=== PATIENT | female | born 1975 | race Caucasian/White ===

== ENCOUNTER → 2020-04-15 07:53 | Outpatient (CLI) | payer BC, SELFPAY ==
--- NOTE | 2020-04-15 08:01 | MM_ITS ---
PROCEDURE: MM DIG SCREENING MAMM BI W/CAD DIGITAL BREAST TOMOSYNTHESIS INCLUDED Patient Age:44Y CLINICAL INDICATION: SCREENING. Mirena; no new complaints Family history. Negative COMPARISON: MY Digital Jony Screen BILAT from 10/04/2017 TECHNIQUE: Standard CC and MLO images were obtained. R2 CAD reviewed. Bilateral digital breast tomosynthesis included. Additional axillary CC view both breast FINDINGS: Moderate breast density overall.. Regions of moderate femoral gland is the most notable at retroareolar region and towards upper outer quadrant. The prior films are helpful showing a similar gker-oz-ndxnfetl asymmetry in the distribution of fibroglandular elements but No new dominant or suspicious mass but no suspicious calcifications either breast . Left breast. No new areas of significant concern Areas of mild asymmetry seen on today's study were present on previous exam. And dissipate from one-view to another Right breast: No new areas of concern Stable asymmetric fibroglandular elements Bilateral follow-up 1 year recommended IMPRESSION: Stable bilateral mammogram. No new areas of concern Stable mild to moderate asymmetry fibroglandular elements.. . Bilateral follow-up 1 year recommended and encouraged BI-RAD Category: 2 Benign Finding(s) FOLLOW-UP: 1YR 1 Year Follow-up (A letter has been sent to the patient regarding results of the study.) Dictated by: Cyrus Barnes MD 04/20/2020 15:46 Electronically signed by Cyrus Barnes MD in [place] 04/20/2020 15:46
== END ==
PROVIDERS: PCP Family Medicine; Visit Provider Nurse Practitioner Family
DX: Z12.31 Encounter for screening mammogram for malignant neoplasm of breast (principal)
CPT/HCPCS: 77063; 77067

== ENCOUNTER → 2021-09-30 16:36 | Outpatient (CLI) | payer BC, SELFPAY | PROVIDERS: PCP Family Medicine; Visit Provider Nurse Practitioner | DX: Z20.822 Contact with and (suspected) exposure to COVID-19 (principal) | CPT/HCPCS: C9803; U0003; U0005 ==

== ENCOUNTER → 2022-02-17 13:29 | Outpatient (CLI) | payer BC, SELFPAY ==
--- NOTE | 2022-02-17 13:29 | MM_ITS ---
PROCEDURE INFORMATION: Exam: MG Bilateral Screening 3D Mammography Exam date and time: 02/17/2022 1:25 PM Age: 46 years old Clinical indication: Screening examination TECHNIQUE: Imaging protocol: Bilateral Screening tomosynthesis and 2D mammography including computer-aided detection (CAD) when performed. COMPARISON: 1. MG MM DIG SCREENING MAMM BI W/CAD 04/15/2020 8:02 AM 2. MG MY Digital Jony Screen BILAT 10/04/2017 10:53 AM FINDINGS: MAMMOGRAPHY: Breast composition: There are scattered areas of fibroglandular density. Mass: None. Architectural distortion: None. Calcifications: No suspicious calcifications. Asymmetric density: None. Skin thickening: None. Axillary adenopathy: None. IMPRESSION: No mammographic evidence of malignancy. Annual screening is recommended unless otherwise clinically indicated. ASSESSMENT: BI-RADS Category 1: Negative
== END ==
PROVIDERS: PCP Family Medicine; Visit Provider Obstetrics & Gynecology
DX: Z12.31 Encounter for screening mammogram for malignant neoplasm of breast (principal)
CPT/HCPCS: 77063; 77067

== ENCOUNTER → 2023-05-23 14:47 | Outpatient (POV) | payer BC, SELFPAY | PROVIDERS: Visit Provider Dermatology | DX: Z00.00 Encounter for general adult medical examination without abnormal findings (principal) ==

== ENCOUNTER 2024-01-23 14:44 | Outpatient (CLI) | payer BC, SELFPAY | END 2024-01-23 23:59 | disposition home or self-care (01) | LOC: LAB.DROPOF 14:45 | PROVIDERS: PCP Internal Medicine Adolescent Medicine; Visit Provider Physician Assistant | DX: L02.91 Cutaneous abscess, unspecified (principal); B95.7 Other staphylococcus as the cause of diseases classified elsewhere | CPT/HCPCS: 87070; 87077; 87186; 87205 ==

== ENCOUNTER 2024-08-21 10:03 | Outpatient (CLI) | payer BC, SELFPAY ==
--- NOTE | 2024-08-21 10:07 | XR_ITS ---
FINAL REPORT CLINICAL HISTORY: NECK PAIN COMPARISON: None FINDINGS: CERVICAL SPINE: AP, lateral and odontoid views of the cervical spine were obtained. There is no prior exam for comparison. There is no acute fracture or malalignment. Vertebral body height is preserved. There is straightening of the normal curvature of the cervical spine with mild kyphosis at the C5 level. The precervical soft tissues are normal. IMPRESSION: Straightening of the normal curvature of the cervical spine with mild kyphosis at the C5 level. No acute bony abnormality identified. Reviewed, Interpreted and Dictated by Jose More III, MD Transcribed by Emilia Trent Authenticated and . [facility]
== END 2024-08-21 23:59 | disposition home or self-care (01) ==
LOC: RAD 10:04
PROVIDERS: PCP Physician Assistant; Visit Provider Physician Assistant
DX: M54.2 Cervicalgia (principal)
CPT/HCPCS: 72040

== ENCOUNTER 2024-08-28 16:13 | Outpatient (CLI) | payer BC, SELFPAY ==
--- NOTE | 2024-08-28 16:16 | MM_ITS ---
PROCEDURE INFORMATION: Exam: MG Bilateral Screening 3D Mammography Exam date and time: 08/28/2024 4:00 PM Age: 48 years old Clinical indication: Screening examination TECHNIQUE: Imaging protocol: Bilateral Screening tomosynthesis and 2D mammography including computer-aided detection (CAD) when performed. COMPARISON: 1. MG MM DIG SCREENING MAMM BI W/CAD 02/17/2022 1:25 PM 2. MG MM DIG SCREENING MAMM BI W/CAD 04/15/2020 8:02 AM FINDINGS: MAMMOGRAPHY: Breast composition: There are scattered areas of fibroglandular density. Mass: None. Architectural distortion: None. Calcifications: No suspicious calcifications. Asymmetric density: None. Skin thickening: None. Axillary adenopathy: None. IMPRESSION: No mammographic evidence of malignancy. Annual screening is recommended unless otherwise clinically indicated. ASSESSMENT: BI-RADS Category 1: Negative.
== END 2024-08-28 23:59 | disposition home or self-care (01) ==
LOC: RAD 16:14
PROVIDERS: PCP Physician Assistant; Visit Provider Physician Assistant
DX: Z12.31 Encounter for screening mammogram for malignant neoplasm of breast (principal)
CPT/HCPCS: 77063; 77067

== ENCOUNTER 2025-02-17 06:22 | Day surgery (SDC) | payer BC, SELFPAY ==
[2025-02-17 07:17] VITALS: BMI 28.8
[2025-02-17 07:22] VITALS: BP 135/93; PULSE 82; RESP 18; TEMP 36.1; O2SAT 96
--- NOTE | 2025-02-17 07:30 | P.PNANES_ITS ---
[facility] Disclaimer: The information contained in this section may have been updated after the patient was seen, as this information can be updated by other users. Medical History (Updated 02/17/25 @ 07:20 by Houston Green RN) No significant past medical history Surgical History History of tonsillectomy History of Family History Father Diabetes Grandfather Cancer Social History Smoking Status: Never smoker alcohol intake: current alcohol intake frequency: a few times a week substance use type: denies use current occupational status: employed Travel in the last 8 weeks?: None household members: family housing: house Have you lived/traveled outside US in past 30 days?: No Contact w/someone who lives/traveled outside US past 30 days?: No Exposure to someone with infectious disease in past 14 days?: No Do you have a fever (greater than 100.4 F or 38 C)?: No Have you tested positive for COVID-19?: No Exposed to someone with COVID-19 in past 14 days?: No Do you have a sore throat?: No Do you have a cough?: No Do you have any weakness?: No Do you have any diarrhea?: No Are you experiencing any unusual bleeding?: No Do you have any muscle aches/pain?: No Do you have any abdominal pain?: No Are you experiencing loss of taste or smell?: No [facility] Anesthesia Checklist Patient Identification Patient Identification: Arm Band Structural Data Admitted From: Home Planned Operative Procedure/s: Colonoscopy Consent for Planned Operative Procedure(s) Verified: Yes Verified Documents: Surgical Consent and History and Physical NPO Status Verified Time NPO: 05:15 (finished prep) Additional verifications Anesthesia Reactions: No Airway Assessment Mallampati Score:: Class II C-Spine Mobility Assessed: Yes TMJ Mobility Assessed: Yes Dentition: Good Dentition Neurological Assessment Level of Consciousness: Awake, Alert and Appropriate Anesthesia Plan Anesthesia Risk discussed: Yes Anesthesia Plan: Verified ASA Class: II Anesthesia Type: MAC
--- NOTE | 2025-02-17 07:48 | P.HP_ITS ---
History of Present Illness *Admission Date: 02/17/25 *Reason for visit:: Screening colonoscopy *History of present illness: Mrs. Dixon is a 49-year-old female who is here for initial screening colonoscopy. The examination is deemed medically necessary for screening colonoscopy. The patient has been seen, interviewed and examined prior to the procedure by both myself and the anesthesia provider. [facility] Disclaimer: The information contained in this section may have been updated after the patient was seen, as this information can be updated by other users. Medical History (Updated 02/17/25 @ 07:49 by Edmundo Mulligan II, MD) No significant past medical history Surgical History History of tonsillectomy History of Family History Father Diabetes Grandfather Cancer Social History Smoking Status: Never smoker alcohol intake: current alcohol intake frequency: a few times a week substance use type: denies use current occupational status: employed Travel in the last 8 weeks?: None household members: family housing: house Have you lived/traveled outside US in past 30 days?: No Contact w/someone who lives/traveled outside US past 30 days?: No Exposure to someone with infectious disease in past 14 days?: No Do you have a fever (greater than 100.4 F or 38 C)?: No Have you tested positive for COVID-19?: No Exposed to someone with COVID-19 in past 14 days?: No Do you have a sore throat?: No Do you have a cough?: No Do you have any weakness?: No Do you have any diarrhea?: No Are you experiencing any unusual bleeding?: No Do you have any muscle aches/pain?: No Do you have any abdominal pain?: No Are you experiencing loss of taste or smell?: No Other Medical History Have you received the Pneumonia Vaccine: No Review of Systems Review of Systems Review of systems (narrative): Negative *Cardiovascular Comments: Negative *Gastrointestinal Comments: Negative *Genitourinary Comments: Negative *Musculoskeletal Comments: Negative *Neurologic Comments: Negative Meds Home Medications and Allergies Home Medications ?Medication ?Instructions ?Recorded ?Confirmed ?Type levonorgestrel (Mirena) 21 mcg intrauterine DAILY 02/14/25 History rosuvastatin 10 mg tablet 10 mg PO DAILY 02/14/2511/12 History losartan 25 mg tablet 25 mg PO DAILY 02/17/2511/12 History New Prescriptions to Start Prescriptions: Allergies Allergy/AdvReac Type Severity Reaction Status Date / Time From [facility] Allergy Intermediate Rash Uncoded 02/14/25 11:01 Exam Data for Last 24 hours Vital signs and Labs for Last 24 Hours: Temp Pulse Resp BP Pulse Ox O2 Del Method 97.0 F L 82 18 135/93 H 96 Room Air 02/17/25 07:22 02/17/25 07:22 02/17/25 07:22 02/17/25 07:22 02/17/25 07:22 02/17/25 07:22 I & O for Last 24 hours: Intake & Output 02/14/25 02/15/25 02/16/25 02/17/25 23:59 23:59 23:59 23:59 Weight 163 lb *Routine HEENT Exam Head: Present normocephalic Eye: Present EOMI and PERRL ENT: Present mucous membranes moist *Routine Neck Exam Neck: Present supple *Routine Respiratory Exam Respiratory: Present CTA bilaterally *Routine Cardiovascular Exam Cardiovascular: Present RRR *Routine Abdominal Exam Abdominal: Present soft and normoactive bowel sounds; Absent tenderness *Routine Rectal Exam Rectal:: deferred *Routine Genitalia Exam Genitalia:: deferred *Routine Extremities Exam Extremities: Absent cyanosis, clubbing or edema *Routine Skin Exam Skin: Present warm; Absent rash *Routine Neurological Exam Neurological: Present alert and oriented X3 Assessment and Plan *Assessment and plan (1) Encounter for screening colonoscopy: Status: Acute Category: Medical Code(s): Z12.11 - Encounter for screening for malignant neoplasm of colon (2) Screening for colon cancer: Status: Acute Category: Medical Code(s): Z12.11 - Encounter for screening for malignant neoplasm of colon Plan A/P: 1. Screening for colon cancer is the preprocedural diagnosis. The patient will be anesthetized/sedated using MAC sedation. The patient has been seen and examined. Cardiac and lung assessment prior to the examination is stable. Proceed with planned screening colonoscopy.
[2025-02-17 07:50] LABS: HCG Qualitative, Serum Negative (Negative)
--- NOTE | 2025-02-17 07:50 | P.PCN_ITS ---
[facility] Procedure Note Date: 02/17/25 Time: 08:03 Procedure Note:: Colonoscopy Procedure Report: Colonoscopy with cold snare polypectomy and cold biopsy Endoscopist: Edmundo Mulligan II, MD Referring physician: Kadi Charles PA-C Date of Procedure: February 17, 2025 Equipment: Olympus 190 variable stiffness pediatric colonoscope Sedation: MAC sedation Indication: Mrs. Dixon is a 49-year-old female who is here for initial screening colonoscopy. She reports no abdominal pain, weight loss, change in her bowel habits or rectal bleeding. She does report that her maternal grandfather had colon cancer around the age of 65. Procedure: Prior to the procedure, a history and physical exam was performed, and patient's medications and allergies were reviewed. The risks, benefits and alternatives of the sedation and procedure were discussed with the patient. All questions were answered and informed consent was obtained. The patient was brought to the procedure room. Patient identification and proposed procedure were verified by the physician and the nurse. The patient was placed in a left lateral decubitus position and the scope was passed under direct vision. Throughout the procedure, the patient's blood pressure, pulse, and oxygen saturations were monitored continuously. The colonoscopy was accomplished without difficulty. The patient tolerated the procedure well. Findings: On digital rectal examination there was normal rectal tone. There were no external hemorrhoids and there were small external hemorrhoidal tags. The colonoscope was introduced through the anal canal to the rectum and advanced to the cecum. The ileocecal valve and appendiceal orifice were identified. The scope was advanced a short distance into the ileum and there was a very small 3 mm nodule that was removed via cold biopsy. The scope was then withdrawn into the colon. There was a single cecal polyp (5 mm) which was removed via cold snare polypectomy. The cecum, ascending, transverse, descending, sigmoid and rectum were grossly normal. There were no mucosal abnormalities identified. Upon retroflexion within the rectum there were grade 2 internal hemorrhoids. The preparation was excellent throughout with [place] Preparation Score of 9. The cecal time was 12 minutes. Impression: 1. Diminutive 5 mm cecal polyp 2. Grade 2 internal hemorrhoids Plan: I will follow-up the polyp histology and recommend repeat surveillance colonoscopy again in 7 years if the polyp is adenomatous. I would encourage psyllium bulking fiber supplementation on a maintenance basis.
[2025-02-17 08:05] VITALS: BP 102/71; PULSE 85; RESP 20; TEMP 36.2; O2SAT 99
[2025-02-17 08:15] VITALS: BP 105/73; PULSE 83; RESP 20; O2SAT 97
[2025-02-17 08:25] VITALS: BP 100/75; PULSE 89; RESP 20; O2SAT 97
[2025-02-17 08:35] VITALS: BP 104/71; PULSE 84; RESP 18; TEMP 36.2; O2SAT 99
== END 2025-02-17 08:55 | disposition home or self-care (01) ==
PROVIDERS: PCP Physician Assistant; Visit Provider Internal Medicine Gastroenterology
PROC: 0DJD8ZZ Inspection of Lower Intestinal Tract, Via Natural or Artificial Opening Endoscopic (ICD-10-PCS; CPT 45378; principal; 2025-02-17 08:00)
DX: Z12.11 Encounter for screening for malignant neoplasm of colon (principal); D12.0 Benign neoplasm of cecum; K64.1 Second degree hemorrhoids; Z80.0 Family history of malignant neoplasm of digestive organs; Z88.8 Allergy status to other drugs, medicaments and biological substances; Z79.899 Other long term (current) drug therapy
CPT/HCPCS: 45380; 45385; 84703

== ENCOUNTER 2025-03-19 15:24 | Outpatient (CLI) | payer BC, SELFPAY ==
--- OUTSIDE RECORDS SUMMARY | 2024-02-16 07:30 | XMS_ITS ---
Author Organization [facility] Address [address] [facility] [address] [place] [id number] Care Team Providers Care Strip Picker Name Role Phone Mavis Monroy Primary Care Provider Lyndsey Rojas Unavailable [phone] Glenn Ceja Unavailable [phone] Allergies Allergen (clinical drug ingredient) Drug/Non Drug [...] 02/16/2024 Encounters Encounter Location Date Provider Diagnosis [facility] [address] [place] [id number] 02/16/2024 Glenn Meredosia Cough, unspecified t ype R05.9 ; Seasonal [...] Appt Details Follow Up: via phone to kathy rt progress, Reason: Provider Name:Kadi masters, 03/19/2025 02:45:00 PM, [address], [place], [place], [id number], Progress Notes * Krystal DIXON:1975 (49 yo F)Acc No.[id number]:02/16/2024 Progress Notes Patient: Madonna VALLADARES Provider: Ace Ceja M.D. :1975 A ge:48 Y S ex:Female Date:02/16/2024 Address:[address], [place], [id number] Pcp:Mavis Monroy Subjective: * Chief Complaints: * [...] . * Hospitalization/Major Diagno stic Procedure: b [facility] ER-DX with BPPV but doesn't have [...] * Procedure Codes: 9 [address] [place], [address] CAPILLARY BLOOD DRAW, 87744 CBC WITH AUTO DIFF * Follow Up: v ia phone to report progress * Images: Billing Information: * Visit Code: 68711 Office Visit, Est Pt., Level 4. * Procedure Codes: [address] [place]. [address] CAPILLARY BLOOD DRAW. 33696 CBC WITH AUTO DIFF. * Electronic signature of Sasha Ceja MD on 03/19/2025 at 03:26 PM EDT Sign off status: Pending * Provider: Ace Ceja M.D. Date: 0 02/16/2024 Generated for Toby smith/Manjula/eTransmitting on: 0 03/19/2025 03:26 PM EDT History and Physical Notes * HPI (History [...]
--- OUTSIDE RECORDS SUMMARY | 2024-08-21 05:30 | XMS_ITS ---
Author Organization Niels Address [address] [facility] [address] [place] [id number] Care Team Providers Care Grinding Machine Tender Name Role Phone Mavis Monroy Primary Care Provider [phone] Lyndsey Rojas Unavailable [phone] Kadi Charles Unavailable [phone] Allergies Allergen (clinical drug ingredient) Drug/Non Drug [...] Interpretation: Performing Lab: Notes/Report: Test performed by [facility] , [address], [place] [address] Demetrius Vences MD, Produce Assistant CLIA: [id number] Sodium 141 135-145 mmol/L Potassium 4.1 3.5-5.3 [...] Interpretation: Performing Lab: Notes/Report: Test performed by [facility] ([facility]), [address] , [address] , [place] [address] Demetrius Vences MD, Produce Assistant CLIA: [id number] Cholesterol 156 <200 mg/dL Triglycerides 68 <150 [...] Interpretation: Performing Lab: Notes/Report: Test performed by [facility] [address] , [address], [place] [address] Demetrius Vences MD, Produce Assistant CLIA: [id number] TSH reflex to FT4 2.91 0.43-5.25 mU/L [...] W/U Status Risk Notes Problem Neck pain (M54.2) Active confirmed Vital Signs Blood pressure systolic 112 mm Hg 08/21/20 24 Blood pressure diastolic 70 mm Hg 024 Heart Rate 94 /min 08/21/2024 Height 63 in 08/21/2024 Weight 163.2 lbs 08/21/2024 BMI 28.91 kg/m2 08/21/2024 Encounters Encounter Location Date Provider Diagnosis Daniel [address] [facility] [address] [facility] [address] [place] [id number] 08/21/2024 Kadi Charles Essential hypertensi on I10 [...] phone to repo rt test results, Reason: Provider Name:Kadi Spivey y, 03/19/2025 02:45:00 PM, [address] [facility], [address], [place], [id number], Progress Notes * Krystal SU:1975 (49 yo F)Acc No.[id number]:08/21/2024 Progress Notes Patient: Matthias VALLADARESa Provider: JENNIFER Haines :1975 A ge:48 Y S ex:Female Date:08/21/2024 Address:[facility] [place], [place], [id number] Pcp:Mavis Monroy Subjective: * Chief Complaints: * [...] . * Hospitalization/Major Diagno stic Procedure: b [facility] ER-DX with BPPV but doesn't have [...] * Vitals: W t:163.2, Temp:97.6, BP:112/70, HR:94, Nurse:ETHAN, Ht: 63, BMI:28.91. * Examination: G eneral [...] Lr 08/21/2024 11:06:09 AM > faxed to [facility] Florence Casarez 08/22/2024 9:21:21 AM > 08/28/24 @4:30CrKadi barajas 09/19/2024 1:19:40 PM > see TE 5.?Colon cancer screening?Imaging: colonoscopy* Kadi Charles 08/21/2024 11 :01:38 AM > Needs with Suni Acosta 08/21/2024 11:03:37 AM > faxed to Dr. Mulligan office * Procedure Codes: 8 5025 CBC WITH AUTO DIFF, 06614 VENIPUNCT, ROUTINE* * Follow Up: v ia phone to report test results * Images: Billing Information: * Visit Code: 88193 Office Visit, Est Pt., Level 4. * Procedure Codes: 51677 CBC WITH AUTO DIFF. 11584 VENIPUNCT, ROUTINE*. * Electronic signature of JENNIFER Martinez on 03/19/2025 at 03:26 PM EDT Sign off status: Pending * Provider: JENNIFER Haines Date: 10/22/2023 Generated for Lindai ng/Fasylviag/eTransmitting on: 0 03/19/2025 03:26 PM EDT History [...]
--- OUTSIDE RECORDS SUMMARY | 2025-03-19 15:27 | XMS_ITS | Patient Health Record ---
Author Organization [facility] Address [address] [facility] [address] [place] [id number] Care Team Providers Care Erp Implementation Consultant Name Role Phone Mavis Monroy Primary Care Provider [phone] Lyndsey Rojas Unavailable [phone] Kadi Charles Unavailable [phone] Allergies Allergen (clinical drug ingredient) Drug/Non Drug [...] Interpretation: Performing Lab: Notes/Report: Test performed by [facility], [facility] [address] [place] [address] , [address], [place] [address] Demetrius Vences MD, Dog Day Care Attendant CLIA: [id number] Sodium 141 135-145 mmol/L Potassium 4.1 3.5-5.3 [...] Interpretation: Performing Lab: Notes/Report: Test performed by [facility], [address] , [address], [place] [address] Demetrius Vences MD, Dog Day Care Attendant CLIA: [id number] Cholesterol 156 <200 mg/dL Triglycerides 68 <150 [...] Interpretation: Performing Lab: Notes/Report: Test performed by [facility] [address] [place] [address] , [address], [place] [address] Demetrius Vences MD, Dog Day Care Attendant CLIA: [id number] TSH reflex to FT4 2.91 0.43-5.25 mU/L Mammogram Reviewed date:09/19/2024 01:19:44 PM Interpretation:Negative Performing Lab: Notes/Report: Negative result Negative X ray : Spine, cervical A-P and Lateral Reviewed date:08/23/2024 01:07:31 PM Interpretation: Performing Lab: Notes/Report: Reason For Referral No Information Medications Medication SIG (Take, Route, Frequency, Duration) Notes Start Date End Date Status Rosuvastatin Calcium 10 mg TAKE ONE TABL ET BY MOUTH EVERY DAY; Duration: 90 Active Omeprazole 40 MG 1 capsule 30 minutes before morning meal Orally Two times a day; Duration: 30 day(s) 02/16/2024 Active Loratadine 10 MG 1 tablet Orally Once a day; Duration: 30 day(s) Active tiZANidine HCl 4 MG 1 cap(s) orally ever y night as needed; Duration: 90 days Active Rosuvastatin Calcium 10 MG 1 tab(s) oral ly once a day; Duration: 30 days Active Montelukast Sodium 10 MG 1 tablet Orally Once a day; Duration: 30 days Active Losartan Potassium 25 MG 1 tablet Orally Once a day; Duration: 90 days 02/16/2024 Active Immunizations Vaccine Route Administration Date Status Comme nts COVID 19 Moderna Unknown 11/06/2020 Administered COVID 19 Moderna Unknown 07/28/2021 Administered Fluzone PF Quad (6-35 months) Unknown 10/09/2018 Admini stered Fluzone PF Quad (6-35 months) Unknown 07/15/2019 Admini stered Fluzone PF Quad (6-35 months) Unknown 07/13/2021 Admini stered Fluzone PF Quad (6-35 months) Unknown 07/26/2022 Admini stered Fluzone Quad (6months&older) Unknown 10/09/2018 Adminis tered Hepatitis A (adult) Unknown 10/09/2018 Administered Problems Problem Type SNOMED Code ICD Code Onset Dates Problem Status W/U Status Risk Notes Problem Hypertension (09291468) HTN (hypertension) (I10) Active confirmed Problem Hyperlipidemia (17508875) Hyperlipidemia (E78.5) Active confirmed Problem Essential hypertension (42917020) Essential hypertension (I10) Active confirmed Problem Seasonal allergy (160456996) Seasonal allergies (J30.2) Active confirmed Problem Neck pain (66524259) Neck pain (M54.2) Active confirmed Problem Band neutrophil count above reference range (746994925) Left shift without diagnosis of specific infection (D72.825) Active confirmed Vital Signs Heart Rate 76 /min 03/19/2025 Blood pressure diastolic 76 mm Hg 03/19/2025 Height 63 in 03/19/2025 Blood pressure systolic 124 mm Hg 03/19/2025 Weight 171.6 lbs 03/19/2025 BMI 30.39 kg/m2 03/19/2025 Encounters Encounter Location Date Provider Diagnosis [facility] [address] [facility] [address] [place], [place] [id number] 08/21/2024 Kadi Charles Essential hypertensi on I10 ; Neck pain M54.2 ; Hyperlipidemia E78.5 ; Screening mammogram, encounter for Z12.31 and Colon cancer screening Z12.11 [facility] [address] [place], [place] [id number] 03/19/2025 Kadi Charles Injury of right ankl e, initial encounter S99.911A [facility] [address] [place], [place] [id number] 09/19/2024 Kadi Charles [facility] [address] [place], [place] [id number] 11/20/2024 Mavis Monroy Hyperlipidemia E78.5 [facility] [address] [facility] [address] [facility] [address] [place] [id number] 02/18/2025 Mavis Monroy Hyperlipidemia E78.5 Assessments Encounter Date Diagnosis (ICD Code) Assessment Notes Treatment Notes Treatment Clinical Notes Section Notes 08/21/2024 Essential hypertension (ICD-10 - I10) 11/20/2024 Hyperlipidemia (ICD-10 - E78.5) 02/18/2025 Hyperlipidemia (ICD-10 - E78.5) 03/19/2025 Injury of right ankle, initial encounter (ICD-10 - S99.911A) 08/21/2024 Neck pain (ICD-10 - M54.2) 08/21/2024 Hyperlipidemia (ICD-10 - E78.5) 08/21/2024 Screening mammogram, encounter for (ICD-10 - Z12.31) 08/21/2024 Colon cancer screening (ICD-10 - Z12.11) Plan Of Treatment Pending Test Test Name Order Date X ray : Ankle, right 03/19/2025 X ray : Foot, right 03/19/2025 colonoscopy 08/21/2024 Next Appt Details Provider Name:Kadi Merlos Clovisamara sonam, 03/19/2025 02:45:00 PM, [address] [facility] [address] [facility], [address], [place], [id number], Insurance Providers Payer Name Payer Address Payer Phone Subscriber Number Group Number Insured Name Patient Relationship to Insured Coverage Start Date Coverage End Date [employer] [facility] [address] [place] [address] [id number] Madonna Dixon Self - patient is the insured Medical (General) History Medical History History ICD Code Allergic Rhinitis Surgical History Surgery Date(Month/Year) 2003, 2005 Tonsillectomy Hospitalization History Reason Date(Month/Year) Clinic-Bronchitis, Sinus infection [facility] ER-DX with BPPV but doesn 't have it 07/14/2018
--- NOTE | 2025-03-19 15:28 | XR_ITS ---
PROCEDURE INFORMATION: Exam: XR Right Foot Exam date and time: 03/19/2025 3:30 PM Age: 49 years old Clinical indication: Injury or trauma; Other: Twisted ankle; Sprain or strain; Right; Additional info: Twisted ankle while walking 6 days ago. , Swelling, bruising TECHNIQUE: Imaging protocol: Radiologic exam of the right foot. Views: 3 or more views. COMPARISON: CR XR FOOT RT MIN 3V 03/19/2025 3:30 PM FINDINGS: Bones/joints: Fracture distal aspect of fibula. No dislocation. Soft tissues: Lateral soft tissue swelling. IMPRESSION: Distal fibular fracture.
--- NOTE | 2025-03-19 15:28 | XR_ITS ---
PROCEDURE INFORMATION: Exam: XR Right Ankle Exam date and time: 03/19/2025 3:30 PM Age: 49 years old Clinical indication: Pain; Ankle and foot; Right; Additional info: Injury RT ankle TECHNIQUE: Imaging protocol: Radiologic exam of the right ankle. Views: 3 or more views. COMPARISON: No relevant prior studies available. FINDINGS: Bones/joints: Minimally displaced transverse fracture distal aspect of fibula. No dislocation. Minimal joint effusion. Soft tissues: Lateral soft tissue swelling. IMPRESSION: Distal fibular fracture.
== END 2025-03-19 23:59 | disposition home or self-care (01) ==
LOC: RAD 15:25
PROVIDERS: PCP Physician Assistant; Visit Provider Physician Assistant
DX: S82.831A Other fracture of upper and lower end of right fibula, initial encounter for closed fracture (principal)
CPT/HCPCS: 73610; 73630

== ENCOUNTER 2025-07-31 19:19 | Emergency (ER) | payer BC, SELFPAY ==
--- OUTSIDE RECORDS SUMMARY | 2024-02-16 06:30 | XMS_ITS ---
Author Organization [facility] Address [address] [facility] [address] [place] [id number] Care Team Providers Care Breeding Technician Name Role Phone Mavis Monroy Primary Care Provider [phone] Lyndsey Rojas Unavailable [phone] Glenn Ceja Unavailable [phone] Allergies Allergen (clinical drug ingredient) Drug/Non Drug Allergy documented on EMR Reaction Allergy Type Onset Date Status cefaclor Cefaclor Unknown Drug Allergy Active Results Component Value Reference Range Notes CBC Fingerstick (in house) Reviewed date:02/19/2024 09:10:29 AM Interpretation: Performing Lab: Notes/Report: wbc 7.8 3.5 - 10 lym 24.7 15 - 50 mid 6.0 2 - 15 gran 69.3 35 - 80 rbc 4.66 3.5 - 5.5 hgb 14.0 11.5 - 16.5 hct 43.3 35 - 55 mcv 92.8 75 - 100 mch 30.2 25 - 35 mchc 32.5 31 - 38 plat 235 100 - 400 REASON FOR VISIT cough more than a month, shaking Medications Medication SIG (Take, Route, Frequency, Duration) Notes Start Date End Date Status Benzonatate 200 MG 1 capsule Orally Thr ee times a day as needed 02/16/2024 Active Rosuvastatin Calcium 10 mg TAKE ONE TABL ET BY MOUTH EVERY DAY; Duration: 90 Active Losartan Potassium 25 MG 1 tablet Orally Once a day; Duration: 90 days 02/16/2024 Active Loratadine 10 MG 1 tablet Orally Once a day; Duration: 30 day(s) Active Montelukast Sodium 10 MG 1 tablet Orally Once a day; Duration: 30 day(s) 02/16/2024 Active Omeprazole 40 MG 1 capsule 30 minutes before morning meal Orally Two times a day; Duration: 30 day(s) 02/16/2024 Active Vital Signs Blood pressure systolic 124 mm Hg 02/16/20 24 Blood pressure diastolic 82 mm Hg 024 Heart Rate 80 /min 02/16/2024 Height 63 in 02/16/2024 Weight 168 lbs 02/16/2024 BMI 29.76 kg/m2 02/16/2024 Encounters Encounter Location Date Provider Diagnosis [facility] [address] [place], [place] [id number] 02/16/2024 Glenn Ceja Cough, unspecified t ype R05.9 ; Seasonal allergies J30.2 and Essential hypertension I10 Assessments Encounter Date Diagnosis (ICD Code) Assessment Notes Treatment Notes Treatment Clinical Notes Section Notes 02/16/2024 Cough, unspecified type (ICD-10 - R05.9) 02/16/2024 Seasonal allergies (ICD-10 - J30.2) 02/16/2024 Essential hypertension (ICD-10 - I10) Plan Of Treatment Medication Medication Name Sig Start Date Stop Date Notes Benzonatate 200 MG 1 capsule Orally Thr ee times a day as needed 02/16/2024 Losartan Potassium 25 MG 1 tablet Orally Once a day; Duration: 90 days 02/16/2024 Lisinopril 5 mg TAKE ONE TABLET BY M OUTH EVERY DAY Montelukast Sodium 10 MG 1 tablet Orally Once a day; Duration: 30 day(s) 02/16/2024 Omeprazole 40 MG 1 capsule 30 minutes before morning meal Orally Two times a day; Duration: 30 day(s) 02/16/2024 Next Appt Details Follow Up: via phone to repo rt progress, Reason: Progress Notes * Krystal DIXON:1975 (49 yo F)Acc No.[id number]:02/16/2024 Progress Notes Patient: Madonna VALLADARES Provider: Ace Ceja M.D. :1975 A ge:48 Y S ex:Female Date:02/16/2024 Address:[facility] [address] [place], [id number] Pcp:Mavis Monroy Subjective: * Chief Complaints: * 1 . Cough more than a month, shaking. * HPI: E NT/respiratory: 48 year old female presents with c/o cough P t complains of cough for a month or longer. States cough was dry until a couple days ago. Pt states she now has greenish yellow sputum production and it is worse in the morning. N eurology: c/o lightheaded P t complains of feeling lightheaded at times. States this is something that is new . Pt is not sure of what may be causing this feeling and states that it is episodic. * ROS: D ERMATOLOGY: no R garcia. n o H victoriano. G ASTROENTEROLOGY: no N ausea. n o V omiting. U ROLOGY: no D ifficulty urinating. n o B lood in urine. * Medical History: A llergic Rhinitis. * Surgical History: C -Section 2003, 2005, Tonsillectomy . * Hospitalization/Major Diagno stic Procedure: b [facility] ER-DX with BPPV but doesn't have it 07/14/2018, Clinic- Bronchitis, Sinus infection 07/2019. * Family History: F ather: alive, diagnosed with Diabetes. M other: alive. P aternal Grand Father: . P aternal Grand Mother: alive. M aternal Grand Father: . M aternal Grand Mother: alive. 1 brother(s) , 1 sister(s) . 1 son(s) , 1 daughter(s) - healthy. . * Social History: C URRENT TOBACCO USE S moking Status: Patient does NOT smoke, Former Smoker: No, Second hand smoke exposure: No. C affeine: yes, frequency:. Exercise: yes. Marital Status: . Past smoking status: no. Alcohol: Yes, Type: , Frequency: ,Years: , Determination:. * Medications: T aking Loratadine 10 MG Tablet 1 tablet Orally Once a day , Taking Lisinopril 5 mg Tablet TAKE ONE TABLET BY MOUTH EVERY DAY , Taking Rosuvastatin Calcium 10 mg Tablet TAKE ONE TABLET BY MOUTH EVERY DAY , Discontinued Hyoscyamine Sulfate 0.125 MG Tablet 1 tab(s) sublingually every 4 hours, prn for abdominal cramping , Discontinued Zithromax Z-Wily 250 MG Tablet 2 pills first day then one daily for 4 days orally as directed , Discontinued Medrol 4 MG Tablet Therapy Pack as directed orally daily , Discontinued tiZANidine HCl 4 MG Tablet 1 cap(s) orally 3 times a day , Discontinued Bactrim DS 800-160 MG Tablet 1 tablet Orally bid , Medication List reviewed and reconciled with the patient * Allergies: C efaclor. Objective: * Vitals: W t:168, Temp:97.8, BP:124/82, HR:80, O2 Sat:98% on RA, Nurse:stephanie, Ht: 63, BMI:29.76. * Examination: E NT/Respiratory: General Appearance: N AD. E yes: P ERRLA, sclera clear. E ars: a uditory canals normal bilaterally, TM's WNL. N ose : nares patent, pale, edematous turbinates. O ral cavity : n o erythema or exudate seen on pharynx. N buck : n o cervical lymphadenopathy. H eart : R RR, normal S1 S2. L ungs: c lear to auscultation bilaterally. Assessment: * Assessment: 1. C ough, unspecified type - R05.9 (Primary) 2 . S easonal allergies - J30.2 3 . E ssential hypertension - I10 Plan: * Treatment: Value Reference Range w bc 7.8 3.5 - 10 * l ym 24.7 15 - 50 * m id 6.0 2 - 15 * g ran 69.3 35 - 80 * r bc 4.66 3.5 - 5.5 * h gb 14.0 11.5 - 16.5 * h ct 43.3 35 - 55 * m cv 92.8 75 - 100 * m ch 30.2 25 - 35 * m chc 32.5 31 - 38 * p lat 235 100 - 400 * Yaquelin Talbert 02/16/2024 11:40:5 9 AM > , Provider reviewed results while patient in office. 2.?Seasonal allergies? Start Montelukast Sodium Tablet, 10 MG, 1 tablet, Orally, Once a day, 30 day(s), 30, Refills 0. ?3.?Essential hypertension? Stop Lisinopril Tablet, 5 mg, TAKE ONE TABLET BY MOUTH EVERY DAY;?Start Losartan Potassium Tablet, 25 MG, 1 tablet, Orally, Once a day, 90 days, 90 Tablet, Refills 1.?? * Procedure Codes: 9 [address] [place], [address] CAPILLARY BLOOD DRAW, 64674 CBC WITH AUTO DIFF * Follow Up: v ia phone to report progress * Images: Billing Information: * Visit Code: 25853 Office Visit, Est Pt., Level 4. * Procedure Codes: [address] [place]. [address] CAPILLARY BLOOD DRAW. 02734 CBC WITH AUTO DIFF. * Electronic signature of Sasha Ceja MD on 07/31/2025 at 07:33 PM EST Sign off status: Pending * Provider: Ace Ceja M.D. Date: 0 02/16/2024 Generated for Toby smith/Manjula/eTransmitting on: 1 09/30/2024 07:33 PM EST History and Physical Notes * HPI (History of Present Illness) Category Sub-Category Detail Notes Category Not es ENT/respiratory cough Pt complains of cough for a month or longer. States cough was dry until a couple days ago. Pt states she now has greenish yellow sputum production and it is worse in the morning Neurology lightheaded Pt complains of feeling lightheaded at times. States this is something that is new . Pt is not sure of what may be causing this feeling and states that it is episodic Examination Category Sub-Category Detail Notes Category Not es ENT/Respiratory Oral cavity : no erythema or exudate s een on pharynx Ears: auditory canals norm al bilaterally, TM's WNL Neck : no cervical lymphade nopathy Heart : RRR, normal S1 S2 Lungs: clear to auscultatio n bilaterally General Appearance: NAD Nose : nares patent, pale, edematous turbinates Eyes: PERRLA, sclera clear
--- OUTSIDE RECORDS SUMMARY | 2024-08-21 04:30 | XMS_ITS ---
Author Organization Niels Address [address] [facility] [address] [place] [id number] Care Team Providers Care Light Bulb Replacer Name Role Phone Mavis Monroy Primary Care Provider Lyndsey Rojas Unavailable [phone] Kadi Charles Unavailable [phone] Allergies Allergen (clinical drug ingredient) Drug/Non Drug Allergy documented on EMR Reaction Allergy Type Onset Date Status cefaclor Cefaclor Unknown Drug Allergy Active Results Component Value Reference Range Notes CBC Venipuncture (in house) Reviewed date:08/21/2024 01:16:31 PM Interpretation:Normal Performing Lab: Notes/Report: Normal wbc 4.8 3.5 - 10 lymph 27.1 15 - 50 mid 6.8 2 - 15 gran 66.1 35 - 80 rbc 5.11 3.5 - 5.5 hgb 14.9 11.5 - 16.5 hct 44.9 35 - 55 mcv 87.9 75 - 100 mch 29.2 25 - 35 mchc 33.2 31 - 38 platlet 256 100 - 400 P-Comprehensive Metabolic Pa johnie (CMP) Reviewed date:08/23/2024 01:07:55 PM Interpretation: Performing Lab: Notes/Report: CLIA: [id number] Demetrius Vences MD, Testing Shaking Shipping [facility] , [address], [place] [address] Test performed by [facility], [facility] Sodium 141 135-145 mmol/L Potassium 4.1 3.5-5.3 mmol/L Chloride 103 97-108 mmol/L CO2 25 22-32 mmol/L Glucose 97 65-99 mg/dL BUN 14 6-20 mg/dL Creatinine 0.96 0.50-1.00 mg/dL Calcium 9.3 8.6-10.4 mg/dL eGFR by Creatinine 73 >59 mL/min/1.73m2 Protein 7.3 6.0-8.3 g/dL Albumin 4.7 3.5-5.3 g/dL Alkaline Phosphatase 68 35-121 IU/L ALT (SGPT) 21 <5-47 IU/L AST (SGOT) 20 <5-40 IU/L Bilirubin, Total 0.3 <0.2-1.2 mg/dL A/G Ratio 1.8 1.1-2.5 P-Lipid Panel Reviewed date:08/23/2024 01:07:55 PM Interpretation: Performing Lab: Notes/Report: Test performed by [facility], [address] , [address] , [place] [address] Demetrius Venecs MD, Testing [employer] CLIA: [id number] Cholesterol 156 <200 mg/dL Triglycerides 68 <150 mg/dL HDL Cholesterol 60 >39 mg/dL Cholesterol / HDL Ratio 2.60 0.00-4.44 Ratio Non-HDL Cholesterol 96 <130 mg/dL LDL Cholesterol (Calculation) 82 <130 mg/dL LDL Cholesterol Levels* Less than 100 mg/dL Optimal 100 to 129 mg/dL Near Optimal/ Above Optimal 130 to 159 mg/dL Borderline High 160 to 189 mg/dL High 190 mg/dL and above Very High * Categories as recommended by the 2004 ATPIII guidelines LDL/HDL Ratio 1.4 <3.3 Ratio LDL Cholesterol Patient History Test Date: 08/21/2024 LDL Results: 82 Units: mg/dL % Change: - P-TSH reflex to FT4 Reviewed date:08/23/2024 01:07:55 PM Interpretation: Performing Lab: Notes/Report: Test performed by [facility] [address] , [address], [place] [address] Demetrius Vences MD, Testing Shaking Shipping CLIA: [id number] TSH reflex to FT4 2.91 0.43-5.25 mU/L Mammogram Reviewed date:09/19/2024 01:19:44 PM Interpretation:Negative Performing Lab: Notes/Report: Negative result Negative X ray : Spine, cervical A-P and Lateral Reviewed date:08/23/2024 01:07:31 PM Interpretation: Performing Lab: Notes/Report: REASON FOR VISIT blood work and refills, Needs mammogram & colon cancer screening Medications Medication SIG (Take, Route, Frequency, Duration) Notes Start Date End Date Status tiZANidine HCl 4 MG 1 cap(s) orally ever y night as needed; Duration: 90 days Active Omeprazole 40 MG 1 capsule 30 minutes before morning meal Orally Two times a day; Duration: 30 day(s) 02/16/2024 Active Losartan Potassium 25 MG 1 tablet Orally Once a day; Duration: 90 days 02/16/2024 Active Rosuvastatin Calcium 10 MG 1 tab(s) oral ly once a day Active Montelukast Sodium 10 MG 1 tablet Orally Once a day; Duration: 30 days Active Benzonatate 200 MG 1 capsule Orally Thr ee times a day as needed 02/16/2024 Active Rosuvastatin Calcium 10 mg TAKE ONE TABL ET BY MOUTH EVERY DAY; Duration: 90 Active Loratadine 10 MG 1 tablet Orally Once a day; Duration: 30 day(s) Active Problems Problem Type SNOMED Code ICD Code Onset Dates Problem Status W/U Status Risk Notes Problem Neck pain (59015814) Neck pain (M54.2) Active confirmed Vital Signs Blood pressure systolic 112 mm Hg 08/21/20 24 Blood pressure diastolic 70 mm Hg 024 Heart Rate 94 /min 08/21/2024 Height 63 in 08/21/2024 Weight 163.2 lbs 08/21/2024 BMI 28.91 kg/m2 08/21/2024 Encounters Encounter Location Date Provider Diagnosis [facility] [address] [facility] [address] [place] [id number] 08/21/2024 Kadi Charles Essential hypertensi on I10 ; Neck pain M54.2 ; Hyperlipidemia E78.5 ; Screening mammogram, encounter for Z12.31 and Colon cancer screening Z12.11 Assessments Encounter Date Diagnosis (ICD Code) Assessment Notes Treatment Notes Treatment Clinical Notes Section Notes 08/21/2024 Essential hypertension (ICD-10 - I10) 08/21/2024 Neck pain (ICD-10 - M54.2) 08/21/2024 Hyperlipidemia (ICD-10 - E78.5) 08/21/2024 Screening mammogram, encounter for (ICD-10 - Z12.31) 08/21/2024 Colon cancer screening (ICD-10 - Z12.11) Plan Of Treatment Medication Medication Name Sig Start Date Stop Date Notes tiZANidine HCl 4 MG 1 cap(s) orally ever y night as needed; Duration: 90 days Losartan Potassium 25 MG 1 tablet Orally Once a day; Duration: 90 days 02/16/2024 Rosuvastatin Calcium 10 MG 1 tab(s) orally once a day Pending Test Test Name Order Date colonoscopy 08/21/2024 Next Appt Details Follow Up: via phone to repo rt test results, Reason: Progress Notes * SHARLENE EmigdioB:1975 (49 yo F)Acc No.[id number]:08/21/2024 Progress Notes Patient: Madonna VALLADARES Provider: JENNIFER Haines :1975 A ge:48 Y S ex:Female Date:08/21/2024 Address:[facility] [place], [facility] [place], [id number] Pcp:Mavis Monroy Subjective: * Chief Complaints: * 1 . Blood work and refills. 2. Needs mammogram & colon cancer screening. * HPI: C ardiology: Hyperlipidemia P t presents today for a check up, refills and fasting labs. N buck: c/o pain P t sts that she has been having some ongoing neck pain for a while. Pt would like to see if there is something that could be done to help or if it is something she will just have to manage. * ROS: D ERMATOLOGY: no R garcia. n o H victoriano. G ASTROENTEROLOGY: no N ausea. n o V omiting. U ROLOGY: no D ifficulty urinating. n o B lood in urine. * Medical History: A llergic Rhinitis. * Surgical History: C -Section 2003, 2005, Tonsillectomy . * Hospitalization/Major Diagno stic Procedure: b [facility] ER-DX with BPPV but doesn't have it [...] tablet Orally Once a day , Taking Rosuvastatin Calcium 10 mg Tablet TAKE ONE TABLET BY MOUTH EVERY DAY , Taking Benzonatate 200 MG Capsule 1 capsule Orally Three times a day as needed , Taking Omeprazole 40 MG Capsule Delayed Release 1 capsule 30 minutes before morning meal Orally Two times a day , Taking Losartan Potassium 25 MG Tablet 1 tablet Orally Once a day , Taking Montelukast Sodium 10 MG Tablet 1 tablet Orally Once a day , Medication List reviewed and reconciled with the patient * Allergies: C efaclor. Objective: * Vitals: W t:163.2, Temp:97.6, BP:112/70, HR:94, Nurse:G, Ht: 63, BMI:28.91. * Examination: G eneral Examination: General Appearance: N AD. H EENT: u nremarkable.?Oral cavity: n o lesions, mucosa moist and WNL, no erythema. N buck: s upple, no lymphadenopathy, ttp along bilateral trapezius muscles. C hest: n ormal shape and expansion. Heart: R SR. L ungs: c lear to auscultation. A bdomen: bowel sounds present, soft and nontender, no organomegaly or masses, no guarding or rigidity. N eurologic Exam: I ntact, gait normal. S kin: n ormal, no rash. P eripheral pulses: n ormal (2+) bilaterally. E xtremities: n o leg edema. Assessment: * Assessment: 1. N buck pain - M54.2 (Primary) 2 . E ssential hypertension - I10 ? 3 . H yperlipidemia - E78.5 4 . S creening mammogram, encounter for - Z12.31 5 . C olon cancer screening - Z12.11 Plan: * Treatment: 2.?Essential hypertension? Refill Losartan Potassium Tablet, 25 MG, 1 tablet, Orally, Once a day, 90 days, 90 Tablet, Refills 3.?LAB: P-Comprehensive Metabolic Panel (CMP) (Collection Date & Time - 08/21/2024 08:50 AM)* Value Reference Range A /G Ratio 1.8 1.1-2.5 - * A lbumin 4.7 3.5-5.3 - g/dL * A lkaline Phosphatase 68 35-121 - IU/L * A LT (SGPT) 21 <5-47 - IU/L * A ST (SGOT) 20 <5-40 - IU/L * B ilirubin, Total 0.3 <0.2-1.2 - mg/dL * B UN 14 6-20 - mg/dL * C alcium 9.3 8.6-10.4 - mg/dL * C hloride 103 97-108 - mmol/L * C O2 25 22-32 - mmol/L * C reatinine 0.96 0.50-1.00 - mg/dL * G lucose 97 65-99 - mg/dL * P otassium 4.1 3.5-5.3 - mmol/L * S odium 141 135-145 - mmol/L * P rotein 7.3 6.0-8.3 - g/dL * e GFR by Creatinine 73 >59 - mL/min/1.73m2 * Kadi Charles 08/23/2024 1: 07:42 PM > discussed with patient's ?LAB: P-TSH reflex to FT4 (Collection Date & Time - 08/21/2024 08:50 AM)* Value Reference Range T SH reflex to FT4 2.91 0.43-5.25 - mU/L * Kadi Charles 08/23/2024 1: 07:42 PM > discussed with patient's ?LAB: CBC Venipuncture (in house) (Collection Date & Time - 08/21/2024)? Normal* Value Reference Range w bc 4.8 3.5 - 10 * l ymph 27.1 15 - 50 * m id 6.8 2 - 15 * g ran 66.1 35 - 80 * r bc 5.11 3.5 - 5.5 * h gb 14.9 11.5 - 16.5 * h ct 44.9 35 - 55 * m cv 87.9 75 - 100 * m ch 29.2 25 - 35 * m chc 33.2 31 - 38 * p latlet 256 100 - 400 * Brianda Duran 08/21/2024 10:2 2:48 AM >Kadi Charles 08/21/2024 1:16:26 PM > 3.?Hyperlipidemia? Continue Rosuvastatin Calcium Tablet, 10 MG, 1 tab(s), orally, once a day.?LAB: P-Lipid Panel (Collection Date & Time - 08/21/2024 08:50 AM)* Value Reference Range C holesterol / HDL Ratio 2.60 0.00-4.44 - Ratio * C holesterol 156 <200 - mg/dL * H DL Cholesterol 60 >39 - mg/dL * L DL Cholesterol (Calculation) 82 <130 - mg/d L * L DL/HDL Ratio 1.4 <3.3 - Ratio * N on-HDL Cholesterol 96 <130 - mg/dL * T riglycerides 68 <150 - mg/dL * Kadi Charles 08/23/2024 1: 07:42 PM > discussed with patient's 4.?Screening mammogram, encounter for?Imaging: Mammogram (Performed Date - 08/28/2024)?Negative* Value Reference Range r esult Negative * Kadi Charles 08/21/2024 11 :01:25 AM >Suni Lr 08/21/2024 11:06:09 AM > faxed to [facility] Florence Casarez 08/22/2024 9:21:21 AM > 08/28/24 @4:30CrKadi barajas 09/19/2024 1:19:40 PM > see TE 5.?Colon cancer screening?Imaging: colonoscopy* Kadi Charles 08/21/2024 11 :01:38 AM > Needs with Suni Acosta 08/21/2024 11:03:37 AM > faxed to Dr. Mulligan office * Procedure Codes: 8 5025 CBC WITH AUTO DIFF, 79586 VENIPUNCT, ROUTINE* * Follow Up: v ia phone to report test results * Images: Billing Information: * Visit Code: 34383 Office Visit, Est Pt., Level 4. * Procedure Codes: 77686 CBC WITH AUTO DIFF. 75802 VENIPUNCT, ROUTINE*. * Electronic signature of JENNIFER Martinez on 07/31/2025 at 07:33 PM EST Sign off status: Pending * Provider: JENNIFER Haines Date: 10/22/2023 Generated for Toby smith/Manjula/eTransmitting on: 09/30/2024 07:33 PM EST History and Physical Notes * HPI (History of Present Illness) Category Sub-Category Detail Notes Category Not es Cardiology Hyperlipidemia Pt presents toda y for a check up, refills and fasting labs Neck pain Pt sts that she has been having some ongoing neck pain for a while. Pt would like to see if there is something that could be done to help or if it is something she will just have to manage Examination Category Sub-Category Detail Notes Category Not es General Examination HEENT: unremarkable Heart: RSR Lungs: clear to auscultatio n Abdomen: bowel sounds present , soft and nontender, no organomegaly or masses, no guarding or rigidity Extremities: no leg edema General Appearance: NAD Skin: normal, no rash Neurologic Exam: Intact, gait normal Neck: supple, no lymphaden opathy, ttp along bilateral trapezius muscles Oral cavity: no lesions, mucosa m oist and WNL, no erythema Peripheral pulses: normal (2+) bilatera lly Chest: normal shape and exp ansion
--- OUTSIDE RECORDS SUMMARY | 2025-03-19 09:45 | XMS_ITS ---
Author Organization [facility] Address [address] [facility] [address] [place] [id number] Care Team Providers Care Processing Lead Name Role Phone Mavis Monroy Primary Care Provider Lyndsey Rojas Unavailable [phone] Kadi Charles Unavailable [phone] Allergies Allergen (clinical drug ingredient) Drug/Non Drug Allergy documented on EMR Reaction Allergy Type Onset Date Status cefaclor Cefaclor Unknown Drug Allergy Active Results Component Value Reference Range Notes X ray : Ankle, right Reviewed date:03/24/2025 04:44:53 PM Interpretation: Performing Lab: Notes/Report: REASON FOR VISIT ankle pain Medications Medication SIG (Take, Route, Frequency, Duration) Notes Start Date End Date Status Rosuvastatin Calcium 10 mg TAKE ONE TABL ET BY MOUTH EVERY DAY; Duration: 90 Active Loratadine 10 MG 1 tablet Orally Once a day; Duration: 30 day(s) Active tiZANidine HCl 4 MG 1 cap(s) orally ever y night as needed; Duration: 90 days Active Rosuvastatin Calcium 10 MG 1 tab(s) oral ly once a day; Duration: 30 days Active Losartan Potassium 25 MG 1 tablet Orally Once a day; Duration: 90 days 02/16/2024 Active Omeprazole 40 MG 1 capsule 30 minutes before morning meal Orally Two times a day; Duration: 30 day(s) 02/16/2024 Active Montelukast Sodium 10 MG 1 tablet Orally Once a day; Duration: 30 days Active Vital Signs Blood pressure systolic 124 mm Hg 03/19/20 25 Blood pressure diastolic 76 mm Hg 025 Heart Rate 76 /min 03/19/2025 Height 63 in 03/19/2025 Weight 171.6 lbs 03/19/2025 BMI 30.39 kg/m2 03/19/2025 Encounters Encounter Location Date Provider Diagnosis [facility] [address] [place] [id number] 03/19/2025 Kadi Crowelías Injury of right ankl e, initial encounter S99.911A Assessments Encounter Date Diagnosis (ICD Code) Assessment Notes Treatment Notes Treatment Clinical Notes Section Notes 03/19/2025 Injury of right ankle, initial encounter (ICD-10 - S99.911A) Plan Of Treatment Pending Test Test Name Order Date X ray : Foot, right 03/19/2025 Next Appt Details Follow Up: via phone to repo rt test results, Reason: Progress Notes * Matthias DIXONTierraB:1975 (49 yo F)Acc No.[id number]:03/19/2025 Progress Notes Patient: Madonna VALLADARES Provider: JENNIFER Haines :1975 A ge:49 Y S ex:Female Date:03/19/2025 Address:[address], [place], [id number] Pcp:Mavis Monroy Subjective: * Chief Complaints: * 1 . Ankle pain. * HPI: A nkle/Foot: 49 year old female presents with c/o Pain P t is here for right ankle pain. Pt states it started last when she tripped hiking. Pt states it hurts to do anything on it. It immediatly popped and swelled.. * ROS: D ERMATOLOGY: no R garcia. n o H victoriano. G ASTROENTEROLOGY: no N ausea. n o V omiting. n o D iarrhea.? U ROLOGY: no D ifficulty urinating. n o B lood in urine. * Medical History: A llergic Rhinitis. * Surgical History: C -Section 2003, 2005, Tonsillectomy . * Hospitalization/Major Diagno stic Procedure: b [facility] ER-DX with BPPV but doesn't have [...] TABLET BY MOUTH EVERY DAY , Taking Omeprazole 40 MG Capsule Delayed Release 1 capsule 30 minutes before morning meal Orally Two times a day , Taking Montelukast Sodium 10 MG Tablet 1 tablet Orally Once a day , Taking Losartan Potassium 25 MG Tablet 1 tablet Orally Once a day , Taking tiZANidine HCl 4 MG Tablet 1 cap(s) orally every night as needed , Taking Rosuvastatin Calcium 10 MG Tablet 1 tab(s) orally once a day , Medication List reviewed and reconciled with the patient * Allergies: C efaclor. Objective: * Vitals: W t: 171.6, Temp: 98.2, BP: 124/76, HR: 76, Nurse: PE, Ht: 63, BMI:30.39. * Examination: A nkle / Foot: Ankle: r ight. I nspection: s welling on lateral side of ankle, ecchymosis present on dorsal foot and along the lateral side. P alpation: t enderness on the lateral malleolus, tender over lateral ligaments. R marvin of motion: r estricted and painful inversion, eversion, dorsiflexion, and plantar flexion. G ait: f avoring affected side. F oot: e cchymosis on the lateral aspect of foot. Assessment: * Assessment: 1. I njury of right ankle, initial encounter - S99.294P (Primary) Plan: * Treatment: * Procedure Codes: 1 036F TOBACCO NON-USER, G8783 BP SCR PRFRM RCMDD DEFIND SCR INTVL, G8752 MOST RECENT SYSTOLIC BP < 140MM HG, G8754 MOST RECENT DIASTOLIC BP < 90MM HG * Follow Up: v ia phone to report test results * Images: Billing Information: * Visit Code: 00117 Office Visit, Est Pt., Level 3. * Procedure Codes: 1036F TOBACCO NON-USER. G8783 BP SCR PRFRM RCMDD DEFIND SCR INTVL. G8752 MOST RECENT SYSTOLIC BP < 140MM HG. G8754 MOST RECENT DIASTOLIC BP < 90MM HG. * Electronic signature of JENNIFER Martinez on 07/31/2025 at 07:33 PM EST Sign off status: Pending * Provider: JENNIFER Haines Date: 0 03/19/2025 Generated for Lindai ng/Fernandog/eTransmitting on: 1 09/30/2024 07:33 PM EST History and Physical Notes * HPI (History of Present Illness) Category Sub-Category Detail Notes Category Not es Ankle/Foot Pain Pt is here for r ight ankle pain. Pt states it started last when she tripped hiking. Pt states it hurts to do anything on it. It immediatly popped and swelled. Examination Category Sub-Category Detail Notes Category Not es Ankle / Foot Gait: favoring affected side Inspection: swelling on lateral side of ankle, ecchymosis present on dorsal foot and along the lateral side Palpation: tenderness on the la teral malleolus, tender over lateral ligaments Ankle: right Range of motion: restricted and painf ul inversion, eversion, dorsiflexion, and plantar flexion Foot: ecchymosis on the la teral aspect of foot
[2025-07-31] VITALS (25 sets, daily range): BP systolic 134–168; BP diastolic 89–127; PULSE 64–111; RESP 12–24; TEMP 36.6–36.8; O2SAT 91–100; BMI 28.7
--- NOTE | 2025-07-31 19:26 | XR_ITS ---
PROCEDURE INFORMATION: Exam: XR Left Forearm Exam date and time: 07/31/2025 7:44 PM Age: 49 years old Clinical indication: Injury or trauma; Fall; Blunt trauma (contusions or hematomas); Elbow; Left TECHNIQUE: Imaging protocol: Radiologic exam of the left forearm. Views: 1 view. COMPARISON: No relevant prior studies available. FINDINGS: Bones/joints: Comminuted, angulated fracture proximal ulnar metaphysis. Posterior dislocation of radius with respect to humerus. Soft tissues: Soft tissue swelling. Other findings: Artifact overlying wrist. IMPRESSION: Fracture/dislocation.
--- NOTE | 2025-07-31 19:26 | XR_ITS ---
PROCEDURE INFORMATION: Exam: XR Left Elbow Exam date and time: 07/31/2025 7:44 PM Age: 49 years old Clinical indication: Injury or trauma; Fall; Blunt trauma (contusions or hematomas); Elbow; Left TECHNIQUE: Imaging protocol: Radiologic exam of the left elbow. Views: 1 view. COMPARISON: No relevant prior studies available. FINDINGS: Bones/joints: Comminuted, angulated fracture proximal ulnar metaphysis. Posterior dislocation of radius with respect to humerus. Joint effusion. Soft tissues: Soft tissue swelling. IMPRESSION: Fracture/dislocation.
--- NOTE | 2025-07-31 19:26 | XR_ITS ---
PROCEDURE INFORMATION: Exam: XR Left Wrist Exam date and time: 07/31/2025 7:44 PM Age: 49 years old Clinical indication: Injury or trauma; Fall; Blunt trauma (contusions or hematomas); Elbow; Left TECHNIQUE: Imaging protocol: Radiologic exam of the left wrist. Views: 1 view. COMPARISON: CR XR FOREARM LT 2V 07/31/2025 7:44 PM FINDINGS: Limitations: Artifact overlying wrist, partially obscuring radius. Bones/joints: No displaced fracture. No dislocation. Soft tissues: Unremarkable. IMPRESSION: No displaced fracture. If pain persists, suggest splinting and follow up radiographs in 7-10 days.
--- OUTSIDE RECORDS SUMMARY | 2025-07-31 19:33 | XMS_ITS ---
Author Organization Unknown ENCOUNTERS Encounter Performer Location Date Diagnosis Diagnosis Status Pre Admit [facility] [address] [place] [address] [id number] Emergency [facility] [address] [place] [id number] *Note: Encounters from your own facility or health system may be excluded. Allergies, Adverse Reactions, Alerts Allergen Type Severity Identification Date cefaclor drug allergy 3 [id number] Medications Name Date Quantity Days Supplied GPI Number
--- OUTSIDE RECORDS SUMMARY | 2025-07-31 19:34 | XMS_ITS | Patient Health Record ---
Author Organization [facility] Address [address] [place] [id number] Care Team Providers Care Car Construction Superintendent Name Role Phone Mavis Monroy Primary Care Provider Lyndsey Rojas Unavailable [phone] Kadi Charles Unavailable [phone] Allergies Allergen (clinical drug ingredient) Drug/Non Drug [...] Interpretation: Performing Lab: Notes/Report: Test performed by [facility], [facility] [address] [place] [address] , [address], [place] [address] Demetrius Vences MD, Channeler Insole CLIA: [id number] Sodium 141 135-145 mmol/L Potassium 4.1 3.5-5.3 [...] Interpretation: Performing Lab: Notes/Report: Test performed by [facility], [address] , [address], [place] [address] Demetrius Vences MD, Channeler Insole CLIA: [id number] Cholesterol 156 <200 mg/dL Triglycerides 68 <150 [...] Interpretation: Performing Lab: Notes/Report: Test performed by [facility] [address] [place] [address] , [address], [place] [address] Demetrius Vences MD, Channeler Insole CLIA: [id number] TSH reflex to FT4 2.91 0.43-5.25 mU/L Mammogram Reviewed date:09/19/2024 01:19:44 PM Interpretation:Negative Performing Lab: Notes/Report: Negative result Negative X ray : Spine, cervical A-P and Lateral Reviewed date:08/23/2024 01:07:31 PM Interpretation: Performing Lab: Notes/Report: X ray : Ankle, right Reviewed date:03/24/2025 04:44:53 PM Interpretation: Performing Lab: Notes/Report: Reason For Referral No Information Medications Medication SIG (Take, Route, Frequency, Duration) Notes Start Date End Date Status Omeprazole 40 MG 1 capsule 30 minutes before morning meal Orally Two times a day; Duration: 30 day(s) 02/16/2024 Active Loratadine 10 MG 1 tablet Orally Once a day; Duration: 30 day(s) Active tiZANidine HCl 4 MG 1 cap(s) orally ever y night as needed; Duration: 90 days Active Montelukast Sodium 10 MG 1 tablet Orally Once a day; Duration: 30 days Active Losartan Potassium 25 MG 1 tablet Orally Once a day; Duration: 90 days 02/16/2024 Active Rosuvastatin Calcium 10 MG 1 tab(s) oral ly once a day; Duration: 90 days Active Immunizations Vaccine Route Administration Date Status Comme nts Hepatitis A (adult) Unknown 10/09/2018 Administered Fluzone Quad (6months&older) Unknown 10/09/2018 Adminis tered Fluzone PF Quad (6-35 months) Unknown 10/09/2018 Admini stered Fluzone PF Quad (6-35 months) Unknown 07/15/2019 Admini stered Fluzone PF Quad (6-35 months) Unknown 07/13/2021 Admini stered Fluzone PF Quad (6-35 months) Unknown 07/26/2022 Admini stered COVID 19 Moderna Unknown 11/06/2020 Administered COVID 19 Moderna Unknown 07/28/2021 Administered Problems Problem Type SNOMED Code ICD Code Onset Dates Problem Status W/U Status Risk Notes Problem Hypertension (26555772) HTN (hypertension) (I10) Active confirmed Problem Hyperlipidemia (36412047) Hyperlipidemia (E78.5) Active confirmed Problem Essential hypertension (49874269) Essential hypertension (I10) Active confirmed Problem Seasonal allergy (141994709) Seasonal allergies (J30.2) Active confirmed Problem Neck pain (43992680) Neck pain (M54.2) Active confirmed Problem Band neutrophil count above reference range (810209190) Left shift without diagnosis of specific infection (D72.825) Active confirmed Vital Signs Heart Rate 76 /min 03/19/2025 Blood pressure diastolic 76 mm Hg 03/19/2025 Height 63 in 03/19/2025 Blood pressure systolic 124 mm Hg 03/19/2025 Weight 171.6 lbs 03/19/2025 BMI 30.39 kg/m2 03/19/2025 Encounters Encounter Location Date Provider Diagnosis [facility] [address] [place], [place] [id number] 08/21/2024 Kadi Charles Essential hypertensi on I10 ; Neck pain M54.2 ; Hyperlipidemia E78.5 ; Screening mammogram, encounter for Z12.31 and Colon cancer screening Z12.11 [facility] [address] [place], [place] [id number] 03/19/2025 Kadi Charles Injury of right ankl e, initial encounter S99.911A [facility] [address] [place], [place] [id number] 09/19/2024 Kadi Charles [facility] [address] [place], [place] [id number] 11/20/2024 J Luis Enrique Porfirio Hyperlipidemia E78.5 [facility] [address] [facility] [address] [place], [place] [id number] 02/18/2025 J Luis Enrique Porfirio Hyperlipidemia E78.5 [facility] [address] [place], [place] [id number] 03/24/2025 J Luis Enrique Porfirio [facility] [address] [place], [place] [id number] 04/01/2025 J Luis Enrique Porfirio [facility] [address] [place], [place] [id number] 04/24/2025 J Luis Enrique Porfirio Hyperlipidemia E78.5 [facility] [address] [facility] [address] [place], [place] [id number] 05/30/2025 Kadi Charles Hyperlipidemia E78.5 Assessments Encounter Date Diagnosis (ICD Code) Assessment Notes Treatment Notes Treatment Clinical Notes Section Notes 08/21/2024 Essential hypertension (ICD-10 - I10) 03/19/2025 Injury of right ankle, initial encounter (ICD-10 - S99.911A) 05/30/2025 Hyperlipidemia (ICD-10 - E78.5) 02/18/2025 Hyperlipidemia (ICD-10 - E78.5) 11/20/2024 Hyperlipidemia (ICD-10 - E78.5) 04/24/2025 Hyperlipidemia (ICD-10 - E78.5) 08/21/2024 Neck pain (ICD-10 - M54.2) 08/21/2024 Hyperlipidemia (ICD-10 - E78.5) 08/21/2024 Screening mammogram, encounter for (ICD-10 - Z12.31) 08/21/2024 Colon cancer screening (ICD-10 - Z12.11) Plan Of Treatment Pending Test Test Name Order Date X ray : Foot, right 03/19/2025 colonoscopy 08/21/2024 Insurance Providers Payer Name Payer Address Payer Phone Subscriber Number Group Number Insured Name Patient Relationship to Insured Coverage Start Date Coverage End Date [employer] [address] [place] [address] [id number] Sumner, Madonna Self - patient is the insured Medical (General) History Medical History History ICD Code Allergic Rhinitis Surgical History Surgery Date(Month/Year) 2003, 2005 Tonsillectomy Hospitalization History Reason Date(Month/Year) Clinic-Bronchitis, Sinus infection [facility] ER-DX with BPPV but doesn 't have it 07/14/2018
--- OUTSIDE RECORDS SUMMARY | 2025-07-31 19:34 | XMS_ITS | Clinical Summary ---
Author Organization [facility] Address [address] [place] [address] Care Team Providers Care Keeper Head Name Role Phone Glenn Ceja MD Primary Care Provider [phone] Allergies Active Allergy Reactions Criticality Noted Date Comments Cefaclor Hives 07/14/2018 Medications lisinopril (PRINIVIL,ZESTRIL) 10 MG tablet Take 5 mg by mouth Daily. Active meclizine (ANTIVERT) 25 MG tablet Take 1 tablet by mouth 4 (Four) Times a Day As Needed for dizziness. 24 tablet 8 Active ondansetron ODT (ZOFRAN-ODT) 4 MG disintegrating tablet Take 1 tablet by mouth 4 (Four) Times a Day As Needed for Nausea. 16 tablet 8 Active ibuprofen (ADVIL,MOTRIN) 200 MG tablet Take 200 mg by mouth As Needed for Mild Pain . Active Active Problems Problem Noted Date Diagnosed Date Vertigo 07/17/2018 HTN (hypertension) 07/17/2018 Social History Tobacco Use Types Packs/Day Years Used Date Smoking Tobacco: Never Smokeless Tobacco: Never Alcohol Use Standard Drinks/Week Comments No 0 (1 standard drink = 0.6 oz pur e alcohol) Abuse Screen Answer Date Recorded Unsafe at Home or Work/School Not on file Feels Threatened by Someone? Not on file 05/2023 Does Anyone Keep You from Co ntacting Others or Doint Things Outside the Home? Not on file 06/26/2023 Physical Sign of Abuse Present Not on file 1 Housing Stability Answer Date Recorded Current Living Arrangements Not on file 05/2023 Potentially Unsafe Housing Conditions Not on kumar e 06/26/2023 Family and Community Support Answer Alex e Recorded Help with Day-to-Day Activities Not on file 06/26/2023 Lonely or Isolated Not on file 06/26/2023 Employment Answer Date Recorded Do you want help finding or keeping work or a yuri b? Not on file 06/26/2023 Disabilities Answer Date Recorded Concentrating, Remembering, or Making Decisions Difficulty Not on file 06/26/2023 Doing Errands Independently Difficulty Not on fi le 06/26/2023 Education Answer Date Recorded Help with school or training? Not on file Preferred Language Not on file 06/26/2023 Comments Unknown Sex and Gender Information Value Date Recorded Sex Assigned at Not on file Legal Sex Female 12:05 PM EDT Gender Identity Not on file Sexual Orientation Not on file Last Filed Vital Signs Vital Sign Reading Time Taken Comments Blood Pressure 117/72 07/17/2018 1:29 PM EDT Pulse 92 07/17/2018 1:29 PM EDT Temperature 36.7 C (98 F) 07/15/2018 3:52 AM EDT Respiratory Rate 18 07/15/2018 3:52 AM EDT Oxygen Saturation 99% 07/17/2018 1:29 PM EDT Inhaled Oxygen Concentration - - Weight 65.8 kg (145 lb) 07/17/2018 1:29 PM EDT Height 157.5 cm (5' 2.01 ) 07/17/2018 1:29 PM ED T Body Mass Index 26.51 07/17/2018 1:29 PM EDT Plan of Treatment Health Maintenance Due Date Last Done Comments Annual Gynecologic Pelvic an d Breast Exam 1976 TDAP/TD VACCINES (1 - Tdap) 1995 MAMMOGRAM 2016 ANNUAL PHYSICAL 07/17/2018 HEPATITIS C SCREENING 07/17/2018 COLOGUARD 2021 COLON CANCER SCREENING 5 YEA R SIGMOIDOSCOPY 2021 COLONOSCOPY 2021 [address] CANCER SCREENING 2021 CT COLONOGRAPHY 2021 FECAL OCCULT BLOOD TEST 2021 FIT Testing (1 year) 2021 INFLUENZA VACCINE 04/18/2025 Pneumococcal Vaccine 0-49 Aged Out No longer eligible based on patient's age to complete this topic Insurance [place] [id number] LOC[employer]IN [employer] Care Teams Keeper Head Relationship Specialty Start Date End Date Glenn Ceja MD [address] [facility] [address] [place] [id number] PCP - General Family Medicine 07/14/18
[2025-07-31] MEDS: MORPHINE 4MG/ML SYRINGE 4 MG IV (19:37)
[2025-07-31] MEDS: ONDANSETRON 4MG/2ML VIAL 4 MG IV (19:38)
--- NOTE | 2025-07-31 19:59 | ED_ITS ---
<Statement entered by Herlinda Abrams DO - 08/01/25 21:39> I was consulted by the [facility], and we discussed the complexity of problems being addressed. I approve the treatment and management plan for this patient's care in the emergency department, thus performing a substantial portion of the medical decision making. Herlinda Abrams DO Discharge Plan Disposition Patient Disposition: Home, Self-Care Condition: Good Prescriptions Prescriptions: New oxycodone 5 mg tablet 5 mg PO DAILY Qty: 12 0RF No Action Mirena 21 mcg/24 hours (8 yrs) 52 mg intrauterine device 21 mcg intrauterine DAILY rosuvastatin 10 mg tablet 10 mg PO DAILY Patient Comments: TAKE ONE TABLET BY MOUTH EVERY DAY losartan 25 mg Tablet 25 mg PO DAILY Referrals Follow up/Referrals: Kadi Charles PA [Primary Care Provider, Medical] - See instructions Ari Olmos DO [Staff Physician, Orthopedics] - See instructions Activity Restrictions/Add. Instructions Additional Instructions/Restrictions: Do not get splint wet. May take Tylenol and ibuprofen in addition to oxycodone for pain. Please call Dr. Olmos for appointment for follow-up care. Clinical Impressions Clinical Impression: Elbow fracture, left, Dislocation closed Instructions Patient Instructions: DI for Elbow Fracture, DI for Moderate Sedation Print Language Print Language: [place] Discharge ED Provider: Herlinda Abrams General Adult HPI <Yaritza Chen (ED), EVENT SECURITY OFFICER - Last Filed: 07/31/25 22:07> General Chief complaint: Extremity Injury, Upper Stated complaint: AO 11-13 fell and hurt left arm Time Seen by Provider: 07/31/25 19:26 Mode of Arrival: Ambulatory Source of Information: Patient Description of Symptoms (Recalled from ER Triage Doc. by RN): Pt reports she fell down one step and landed on her left arm. Pt reports 9/10 constant pain. Pt has no visual deformities, and -LOC. Related Data Home Medications ?Medication ?Instructions ?Recorded ?Confirmed levonorgestrel (Mirena) 21 mcg intrauterine DAILY 02/14/25 rosuvastatin 10 mg tablet 10 mg PO DAILY 02/14/2511/12 losartan 25 mg tablet 25 mg PO DAILY 02/17/2511/12 Previous Rx's ?Medication ?Instructions ?Recorded oxycodone 5 mg tablet 5 mg PO DAILY #12 tabs 07/31 Allergies Allergy/AdvReac Type Severity Reaction Status Date / Time cefaclor (From [facility]) Allergy Intermediate Rash Verified 05/05/25 10:16 PFSH <Yaritza Chen (ED), EVENT SECURITY OFFICER - Last Filed: 07/31/25 22:07> PFSH Disclaimer: The information contained in this section may have been updated after the patient was seen, as this information can be updated by other users. Medical History (Updated 07/31/25 @ 22:07 by Yaritza Chen (ED), EVENT SECURITY OFFICER) No significant past medical history Surgical History History of tonsillectomy History of Family History Father Diabetes Grandfather Cancer Social History Smoking Status: Never smoker alcohol intake: current alcohol intake frequency: a few times a week substance use type: denies use current occupational status: employed Travel in the last 8 weeks?: None household members: family housing: house Have you lived/traveled outside [place] in past 30 days?: No Contact w/someone who lives/traveled outside US past 30 days?: No Exposure to someone with infectious disease in past 14 days?: No Do you have a fever (greater than 100.4 F or 38 C)?: No Have you tested positive for COVID-19?: No Exposed to someone with COVID-19 in past 14 days?: No Do you have a sore throat?: No Do you have a cough?: No Do you have any weakness?: No Do you have any diarrhea?: No Are you experiencing any unusual bleeding?: No Do you have any muscle aches/pain?: No Do you have any abdominal pain?: No Are you experiencing loss of taste or smell?: No Other Medical History Have you received the Pneumonia Vaccine: No <Yaritza Chen (NIRMALA), EVENT SECURITY OFFICER - Last Filed: 07/31/25 22:07> ROS Obtained: Yes Systems reviewed as appropriate & no additional complaints except as documented Constitutional Constitutional: Reports as per HPI Physical Exam <Yaritza Chen (ED), EVENT SECURITY OFFICER - Last Filed: 07/31/25 22:07> General General appearance: alert and in distress Head Head exam: normocephalic Eye Eye exam: Present PERRL and EOMI ENT ENT exam: Present normal oropharynx and mucous membranes moist Neck Neck exam: Present full ROM and trachea midline Respiratory Respiratory exam: Present normal lung sounds bilaterally Cardiovascular Cardiovascular exam: Present regular rate, normal rhythm, normal heart sounds, +S1 and +S2 Abdominal Exam Abdominal exam: Present soft Extremities Exam Extremities exam: Present tenderness, normal capillary refill, edema and other (Left elbow obviously fractured and displaced by pulses intact) Neurological Exam Neurological exam: Present alert and oriented X3 Skin Skin exam: Present warm and dry Medical Decision Making <Yaritza Chen (ED), EVENT SECURITY OFFICER - Last Filed: 07/31/25 22:07> Medical Records Screening: Per USPSTF and CDC recommendations, given the prevalence of disease in our region, it is our hospital?s policy to screen for HIV and viral Hepatitis for all patients aged 18 and over and those with ongoing risk factors. Rubin Inquiry Pt receiving controlled substance: No Rubin was queried for this patient: No Vital Signs: 07/31/25 19:29 07/31/25 19:32 07/31/25 19:37 Temperature 97.8 F Temperature Source Oral Pulse Rate 72 Pulse Rate [Left] 64 Respiratory Rate 18 Blood Pressure 134/89 Blood Pressure [Left forearm] Blood Pressure [Right Arm] 142/101 H Blood Pressure Mean 99 Blood Pressure Mean [Left forearm] Blood Pressure Mean [Right Arm] 114 Blood Pressure Source Blood Pressure Source [Left forearm] Blood Pressure Source [Right Arm] Automatic Cuff Blood Pressure Position Blood Pressure Position [Left forearm] Blood Pressure Position [Right Arm] Sitting 02 Sat by Pulse Oximetry 97 98 Oxygen Delivery Method Room Air Room Air Oxygen Flow Rate (LPM) 07/31/25 19:37 07/31/25 19:45 07/31/25 20:00 Temperature Temperature Source Pulse Rate 72 73 74 Pulse Rate [Left] Respiratory Rate Blood Pressure Blood Pressure [Left forearm] Blood Pressure [Right Arm] Blood Pressure Mean Blood Pressure Mean [Left forearm] Blood Pressure Mean [Right Arm] Blood Pressure Source Blood Pressure Source [Left forearm] Blood Pressure Source [Right Arm] Blood Pressure Position Blood Pressure Position [Left forearm] Blood Pressure Position [Right Arm] 02 Sat by Pulse Oximetry 98 96 97 Oxygen Delivery Method Room Air Room Air Room Air Oxygen Flow Rate (LPM) 07/31/25 20:00 07/31/25 20:22 07/31/25 20:30 Temperature Temperature Source Pulse Rate 81 74 Pulse Rate [Left] Respiratory Rate 24 Blood Pressure 143/93 H Blood Pressure [Left forearm] Blood Pressure [Right Arm] Blood Pressure Mean 109 Blood Pressure Mean [Left forearm] Blood Pressure Mean [Right Arm] Blood Pressure Source Blood Pressure Source [Left forearm] Blood Pressure Source [Right Arm] Blood Pressure Position Blood Pressure Position [Left forearm] Blood Pressure Position [Right Arm] 02 Sat by Pulse Oximetry 100 98 Oxygen Delivery Method Room Air Room Air Oxygen Flow Rate (LPM) 07/31/25 20:30 07/31/25 20:45 07/31/25 21:00 Temperature Temperature Source Pulse Rate 81 97 H Pulse Rate [Left] Respiratory Rate 16 17 Blood Pressure 144/90 H Blood Pressure [Left forearm] Blood Pressure [Right Arm] Blood Pressure Mean 114 Blood Pressure Mean [Left forearm] Blood Pressure Mean [Right Arm] Blood Pressure Source Blood Pressure Source [Left forearm] Blood Pressure Source [Right Arm] Blood Pressure Position Blood Pressure Position [Left forearm] Blood Pressure Position [Right Arm] 02 Sat by Pulse Oximetry 99 99 Oxygen Delivery Method Nasal Cannula Nasal Cannula Oxygen Flow Rate (LPM) 2 2 07/31/25 21:00 07/31/25 21:15 07/31/25 21:30 Temperature Temperature Source Pulse Rate 82 Pulse Rate [Left] Respiratory Rate 22 Blood Pressure 158/113 H 136/93 H Blood Pressure [Left forearm] Blood Pressure [Right Arm] Blood Pressure Mean 121 107 Blood Pressure Mean [Left forearm] Blood Pressure Mean [Right Arm] Blood Pressure Source Blood Pressure Source [Left forearm] Blood Pressure Source [Right Arm] Blood Pressure Position Blood Pressure Position [Left forearm] Blood Pressure Position [Right Arm] 02 Sat by Pulse Oximetry 100 Oxygen Delivery Method Nasal Cannula Oxygen Flow Rate (LPM) 2 07/31/25 21:30 07/31/25 21:35 07/31/25 21:35 Temperature Temperature Source Pulse Rate 82 85 Pulse Rate [Left] Respiratory Rate 16 Blood Pressure 139/91 H Blood Pressure [Left forearm] Blood Pressure [Right Arm] Blood Pressure Mean 100 Blood Pressure Mean [Left forearm] Blood Pressure Mean [Right Arm] Blood Pressure Source Blood Pressure Source [Left forearm] Blood Pressure Source [Right Arm] Blood Pressure Position Blood Pressure Position [Left forearm] Blood Pressure Position [Right Arm] 02 Sat by Pulse Oximetry 99 100 Oxygen Delivery Method Nasal Cannula Nasal Cannula Oxygen Flow Rate (LPM) 2 2 07/31/25 21:37 07/31/25 21:37 07/31/25 21:37 Temperature 98.0 F Temperature Source Oral Pulse Rate 81 99 H Pulse Rate [Left] Respiratory Rate 22 23 Blood Pressure 147/104 H 147/104 H Blood Pressure [Left forearm] Blood Pressure [Right Arm] Blood Pressure Mean 117 Blood Pressure Mean [Left forearm] Blood Pressure Mean [Right Arm] Blood Pressure Source Automatic Cuff Blood Pressure Source [Left forearm] Blood Pressure Source [Right Arm] Blood Pressure Position Supine Blood Pressure Position [Left forearm] Blood Pressure Position [Right Arm] 02 Sat by Pulse Oximetry 100 100 Oxygen Delivery Method Nasal Cannula Oxygen Flow Rate (LPM) 2 07/31/25 21:39 07/31/25 21:40 07/31/25 21:40 Temperature 98.0 F Temperature Source Oral Pulse Rate 91 H Pulse Rate [Left] 99 H Respiratory Rate 23 20 Blood Pressure 143/102 H Blood Pressure [Left forearm] 147/104 H Blood Pressure [Right Arm] 147/104 H Blood Pressure Mean 109 Blood Pressure Mean [Left forearm] 118 Blood Pressure Mean [Right Arm] 118 Blood Pressure Source Blood Pressure Source [Left forearm] Automatic Cuff Blood Pressure Source [Right Arm] Automatic Cuff Blood Pressure Position Blood Pressure Position [Left forearm] Supine Blood Pressure Position [Right Arm] Supine 02 Sat by Pulse Oximetry 100 100 Oxygen Delivery Method Nasal Cannula Nasal Cannula Oxygen Flow Rate (LPM) 2 2 07/31/25 21:40 07/31/25 21:41 07/31/25 21:45 Temperature 98.0 F Temperature Source Oral Pulse Rate 90 90 Pulse Rate [Left] 97 H Respiratory Rate 21 16 14 Blood Pressure 147/104 H Blood Pressure [Left forearm] 168/127 H Blood Pressure [Right Arm] Blood Pressure Mean Blood Pressure Mean [Left forearm] 140 Blood Pressure Mean [Right Arm] Blood Pressure Source Automatic Cuff Blood Pressure Source [Left forearm] Automatic Cuff Blood Pressure Source [Right Arm] Blood Pressure Position Supine Blood Pressure Position [Left forearm] Supine Blood Pressure Position [Right Arm] 02 Sat by Pulse Oximetry 100 99 98 Oxygen Delivery Method Nasal Cannula Nasal Cannula Nasal Cannula Oxygen Flow Rate (LPM) 2 2 2 07/31/25 21:45 07/31/25 21:46 07/31/25 21:46 Temperature Temperature Source Pulse Rate 99 H 87 Pulse Rate [Left] Respiratory Rate 18 15 Blood Pressure 143/102 H 168/127 H Blood Pressure [Left forearm] Blood Pressure [Right Arm] Blood Pressure Mean 140 Blood Pressure Mean [Left forearm] Blood Pressure Mean [Right Arm] Blood Pressure Source Automatic Cuff Blood Pressure Source [Left forearm] Blood Pressure Source [Right Arm] Blood Pressure Position Supine Blood Pressure Position [Left forearm] Blood Pressure Position [Right Arm] 02 Sat by Pulse Oximetry 100 99 Oxygen Delivery Method Nasal Cannula Nasal Cannula Oxygen Flow Rate (LPM) 2 2 07/31/25 21:50 07/31/25 21:50 07/31/25 21:50 Temperature Temperature Source Pulse Rate 92 H 95 H Pulse Rate [Left] Respiratory Rate 13 12 Blood Pressure 161/112 H 168/127 H Blood Pressure [Left forearm] Blood Pressure [Right Arm] Blood Pressure Mean 135 Blood Pressure Mean [Left forearm] Blood Pressure Mean [Right Arm] Blood Pressure Source Automatic Cuff Blood Pressure Source [Left forearm] Blood Pressure Source [Right Arm] Blood Pressure Position Supine Blood Pressure Position [Left forearm] Blood Pressure Position [Right Arm] 02 Sat by Pulse Oximetry 99 99 Oxygen Delivery Method Nasal Cannula Nasal Cannula Oxygen Flow Rate (LPM) 2 2 07/31/25 21:51 07/31/25 21:55 07/31/25 21:55 Temperature 98.1 F Temperature Source Oral Pulse Rate 111 H Pulse Rate [Left] 90 Respiratory Rate 17 16 Blood Pressure 158/105 H Blood Pressure [Left forearm] 149/104 H Blood Pressure [Right Arm] Blood Pressure Mean 122 Blood Pressure Mean [Left forearm] 119 Blood Pressure Mean [Right Arm] Blood Pressure Source Blood Pressure Source [Left forearm] Automatic Cuff Blood Pressure Source [Right Arm] Blood Pressure Position Blood Pressure Position [Left forearm] Supine Blood Pressure Position [Right Arm] 02 Sat by Pulse Oximetry 100 100 Oxygen Delivery Method Nasal Cannula Nasal Cannula Oxygen Flow Rate (LPM) 2 2 07/31/25 21:55 07/31/25 22:00 07/31/25 22:00 Temperature Temperature Source Pulse Rate 107 H 69 Pulse Rate [Left] Respiratory Rate 15 19 Blood Pressure 161/112 H 163/114 H Blood Pressure [Left forearm] Blood Pressure [Right Arm] Blood Pressure Mean 124 Blood Pressure Mean [Left forearm] Blood Pressure Mean [Right Arm] Blood Pressure Source Automatic Cuff Blood Pressure Source [Left forearm] Blood Pressure Source [Right Arm] Blood Pressure Position Supine Blood Pressure Position [Left forearm] Blood Pressure Position [Right Arm] 02 Sat by Pulse Oximetry 99 91 L Oxygen Delivery Method Nasal Cannula Nasal Cannula Oxygen Flow Rate (LPM) 2 2 07/31/25 22:00 07/31/25 22:05 07/31/25 22:05 Temperature Temperature Source Pulse Rate 100 H 90 Pulse Rate [Left] Respiratory Rate 15 15 Blood Pressure 158/105 H 149/104 H Blood Pressure [Left forearm] Blood Pressure [Right Arm] Blood Pressure Mean 119 Blood Pressure Mean [Left forearm] Blood Pressure Mean [Right Arm] Blood Pressure Source Automatic Cuff Blood Pressure Source [Left forearm] Blood Pressure Source [Right Arm] Blood Pressure Position Supine Blood Pressure Position [Left forearm] Blood Pressure Position [Right Arm] 02 Sat by Pulse Oximetry 98 100 Oxygen Delivery Method Nasal Cannula Nasal Cannula Oxygen Flow Rate (LPM) 2 2 07/31/25 22:15 07/31/25 22:15 07/31/25 22:56 Temperature 98.2 F Temperature Source Pulse Rate 85 91 H Pulse Rate [Left] Respiratory Rate 18 20 Blood Pressure 138/98 H 137/95 H Blood Pressure [Left forearm] Blood Pressure [Right Arm] Blood Pressure Mean 111 Blood Pressure Mean [Left forearm] Blood Pressure Mean [Right Arm] Blood Pressure Source Blood Pressure Source [Left forearm] Blood Pressure Source [Right Arm] Blood Pressure Position Blood Pressure Position [Left forearm] Blood Pressure Position [Right Arm] 02 Sat by Pulse Oximetry 100 Oxygen Delivery Method Nasal Cannula Room Air Oxygen Flow Rate (LPM) 2 Orders (Tests/Meds): ED MEDICATIONS Discontinued Medications Generic Name Dose Route Start Last Admin Trade Name Freq PRN Reason Stop Dose Admin Ketamine HCl 100 mg 07/31/25 22:28 07/31/25 22:32 Ketamine 50mg/1ml Syringe IV 07/31/25 22:29 100 mg ONCE ONE Administration Morphine Sulfate 4 mg 07/31/25 19:27 07/31/25 19:37 Morphine 4mg/Ml Syringe IV 07/31/25 19:28 4 mg ONCE ONE Administration Ondansetron HCl 4 mg 07/31/25 19:27 07/31/25 19:38 Ondansetron 4mg/2ml Vial IV 07/31/25 19:28 4 mg ONCE ONE Administration Oxycodone HCl 5 mg 07/31/25 22:44 07/31/25 22:49 Oxycodone 5mg Immediate Release Tablet PO 07/31/25 22:45 5 mg ONCE ONE Administration ORDERS Category Date Time Status Elbow XR left 2 views [XR elbow LT 2V] Stat Exams 07/31/25 21:52 Completed Elbow XR left mininum 3 views [XR elbow LT min 3V] Stat Exams 07/31/25 19:26 Completed Forearm XR left 2 views [XR forearm LT 2V] Stat Exams 07/31/25 19:26 Completed Wrist XR left minimum 3 views [XR wrist LT min 3V] Stat Exams 07/31/25 19:26 Completed Medical Decision Narrative: patient is a 49-year-old female presenting to the emergency department for evaluation of left elbow. Patient is hemodynamically stable and nontoxic- appearing upon arrival, afebrile. Differential diagnosis includes fracture versus dislocation. Workup will be conducted with specific imaging Initial inventions include analgesics. Initial workup reviewed by me [hematologic labs are remarkable for:]. [Imaging informally interpreted by me and remarkable for:] [Formal imaging read remarkable for:] Upon repeat evaluation [patient's pain is improved, appears better perfused, appears the same, appears worse, etc.]. Due to this [additional interventions, patient is appropriate for discharge, patient requires admission, etc.]. <Herlinda Abrams, DO - Last Filed: 08/01/25 21:38> Vital Signs: 07/31/25 19:29 07/31/25 19:32 07/31/25 19:37 Temperature 97.8 F Temperature Source Oral Pulse Rate 72 Pulse Rate [Left] 64 Respiratory Rate 18 Blood Pressure 134/89 Blood Pressure [Left forearm] Blood Pressure [Right Arm] 142/101 H Blood Pressure Mean 99 Blood Pressure Mean [Left forearm] Blood Pressure Mean [Right Arm] 114 Blood Pressure Source Blood Pressure Source [Left forearm] Blood Pressure Source [Right Arm] Automatic Cuff Blood Pressure Position Blood Pressure Position [Left forearm] Blood Pressure Position [Right Arm] Sitting 02 Sat by Pulse Oximetry 97 98 Oxygen Delivery Method Room Air Room Air Oxygen Flow Rate (LPM) 07/31/25 19:37 07/31/25 19:45 07/31/25 20:00 Temperature Temperature Source Pulse Rate 72 73 74 Pulse Rate [Left] Respiratory Rate Blood Pressure Blood Pressure [Left forearm] Blood Pressure [Right Arm] Blood Pressure Mean Blood Pressure Mean [Left forearm] Blood Pressure Mean [Right Arm] Blood Pressure Source Blood Pressure Source [Left forearm] Blood Pressure Source [Right Arm] Blood Pressure Position Blood Pressure Position [Left forearm] Blood Pressure Position [Right Arm] 02 Sat by Pulse Oximetry 98 96 97 Oxygen Delivery Method Room Air Room Air Room Air Oxygen Flow Rate (LPM) 07/31/25 20:00 07/31/25 20:22 07/31/25 20:30 Temperature Temperature Source Pulse Rate 81 74 Pulse Rate [Left] Respiratory Rate 24 Blood Pressure 143/93 H Blood Pressure [Left forearm] Blood Pressure [Right Arm] Blood Pressure Mean 109 Blood Pressure Mean [Left forearm] Blood Pressure Mean [Right Arm] Blood Pressure Source Blood Pressure Source [Left forearm] Blood Pressure Source [Right Arm] Blood Pressure Position Blood Pressure Position [Left forearm] Blood Pressure Position [Right Arm] 02 Sat by Pulse Oximetry 100 98 Oxygen Delivery Method Room Air Room Air Oxygen Flow Rate (LPM) 07/31/25 20:30 07/31/25 20:45 07/31/25 21:00 Temperature Temperature Source Pulse Rate 81 97 H Pulse Rate [Left] Respiratory Rate 16 17 Blood Pressure 144/90 H Blood Pressure [Left forearm] Blood Pressure [Right Arm] Blood Pressure Mean 114 Blood Pressure Mean [Left forearm] Blood Pressure Mean [Right Arm] Blood Pressure Source Blood Pressure Source [Left forearm] Blood Pressure Source [Right Arm] Blood Pressure Position Blood Pressure Position [Left forearm] Blood Pressure Position [Right Arm] 02 Sat by Pulse Oximetry 99 99 Oxygen Delivery Method Nasal Cannula Nasal Cannula Oxygen Flow Rate (LPM) 2 2 07/31/25 21:00 07/31/25 21:15 07/31/25 21:30 Temperature Temperature Source Pulse Rate 82 Pulse Rate [Left] Respiratory Rate 22 Blood Pressure 158/113 H 136/93 H Blood Pressure [Left forearm] Blood Pressure [Right Arm] Blood Pressure Mean 121 107 Blood Pressure Mean [Left forearm] Blood Pressure Mean [Right Arm] Blood Pressure Source Blood Pressure Source [Left forearm] Blood Pressure Source [Right Arm] Blood Pressure Position Blood Pressure Position [Left forearm] Blood Pressure Position [Right Arm] 02 Sat by Pulse Oximetry 100 Oxygen Delivery Method Nasal Cannula Oxygen Flow Rate (LPM) 2 07/31/25 21:30 07/31/25 21:35 07/31/25 21:35 Temperature Temperature Source Pulse Rate 82 85 Pulse Rate [Left] Respiratory Rate 16 Blood Pressure 139/91 H Blood Pressure [Left forearm] Blood Pressure [Right Arm] Blood Pressure Mean 100 Blood Pressure Mean [Left forearm] Blood Pressure Mean [Right Arm] Blood Pressure Source Blood Pressure Source [Left forearm] Blood Pressure Source [Right Arm] Blood Pressure Position Blood Pressure Position [Left forearm] Blood Pressure Position [Right Arm] 02 Sat by Pulse Oximetry 99 100 Oxygen Delivery Method Nasal Cannula Nasal Cannula Oxygen Flow Rate (LPM) 2 2 07/31/25 21:37 07/31/25 21:37 07/31/25 21:37 Temperature 98.0 F Temperature Source Oral Pulse Rate 81 99 H Pulse Rate [Left] Respiratory Rate 22 23 Blood Pressure 147/104 H 147/104 H Blood Pressure [Left forearm] Blood Pressure [Right Arm] Blood Pressure Mean 117 Blood Pressure Mean [Left forearm] Blood Pressure Mean [Right Arm] Blood Pressure Source Automatic Cuff Blood Pressure Source [Left forearm] Blood Pressure Source [Right Arm] Blood Pressure Position Supine Blood Pressure Position [Left forearm] Blood Pressure Position [Right Arm] 02 Sat by Pulse Oximetry 100 100 Oxygen Delivery Method Nasal Cannula Oxygen Flow Rate (LPM) 2 07/31/25 21:39 07/31/25 21:40 07/31/25 21:40 Temperature 98.0 F Temperature Source Oral Pulse Rate 91 H Pulse Rate [Left] 99 H Respiratory Rate 23 20 Blood Pressure 143/102 H Blood Pressure [Left forearm] 147/104 H Blood Pressure [Right Arm] 147/104 H Blood Pressure Mean 109 Blood Pressure Mean [Left forearm] 118 Blood Pressure Mean [Right Arm] 118 Blood Pressure Source Blood Pressure Source [Left forearm] Automatic Cuff Blood Pressure Source [Right Arm] Automatic Cuff Blood Pressure Position Blood Pressure Position [Left forearm] Supine Blood Pressure Position [Right Arm] Supine 02 Sat by Pulse Oximetry 100 100 Oxygen Delivery Method Nasal Cannula Nasal Cannula Oxygen Flow Rate (LPM) 2 2 07/31/25 21:40 07/31/25 21:41 07/31/25 21:45 Temperature 98.0 F Temperature Source Oral Pulse Rate 90 90 Pulse Rate [Left] 97 H Respiratory Rate 21 16 14 Blood Pressure 147/104 H Blood Pressure [Left forearm] 168/127 H Blood Pressure [Right Arm] Blood Pressure Mean Blood Pressure Mean [Left forearm] 140 Blood Pressure Mean [Right Arm] Blood Pressure Source Automatic Cuff Blood Pressure Source [Left forearm] Automatic Cuff Blood Pressure Source [Right Arm] Blood Pressure Position Supine Blood Pressure Position [Left forearm] Supine Blood Pressure Position [Right Arm] 02 Sat by Pulse Oximetry 100 99 98 Oxygen Delivery Method Nasal Cannula Nasal Cannula Nasal Cannula Oxygen Flow Rate (LPM) 2 2 2 07/31/25 21:45 07/31/25 21:46 07/31/25 21:46 Temperature Temperature Source Pulse Rate 99 H 87 Pulse Rate [Left] Respiratory Rate 18 15 Blood Pressure 143/102 H 168/127 H Blood Pressure [Left forearm] Blood Pressure [Right Arm] Blood Pressure Mean 140 Blood Pressure Mean [Left forearm] Blood Pressure Mean [Right Arm] Blood Pressure Source Automatic Cuff Blood Pressure Source [Left forearm] Blood Pressure Source [Right Arm] Blood Pressure Position Supine Blood Pressure Position [Left forearm] Blood Pressure Position [Right Arm] 02 Sat by Pulse Oximetry 100 99 Oxygen Delivery Method Nasal Cannula Nasal Cannula Oxygen Flow Rate (LPM) 2 2 07/31/25 21:50 07/31/25 21:50 07/31/25 21:50 Temperature Temperature Source Pulse Rate 92 H 95 H Pulse Rate [Left] Respiratory Rate 13 12 Blood Pressure 161/112 H 168/127 H Blood Pressure [Left forearm] Blood Pressure [Right Arm] Blood Pressure Mean 135 Blood Pressure Mean [Left forearm] Blood Pressure Mean [Right Arm] Blood Pressure Source Automatic Cuff Blood Pressure Source [Left forearm] Blood Pressure Source [Right Arm] Blood Pressure Position Supine Blood Pressure Position [Left forearm] Blood Pressure Position [Right Arm] 02 Sat by Pulse Oximetry 99 99 Oxygen Delivery Method Nasal Cannula Nasal Cannula Oxygen Flow Rate (LPM) 2 2 07/31/25 21:51 07/31/25 21:55 07/31/25 21:55 Temperature 98.1 F Temperature Source Oral Pulse Rate 111 H Pulse Rate [Left] 90 Respiratory Rate 17 16 Blood Pressure 158/105 H Blood Pressure [Left forearm] 149/104 H Blood Pressure [Right Arm] Blood Pressure Mean 122 Blood Pressure Mean [Left forearm] 119 Blood Pressure Mean [Right Arm] Blood Pressure Source Blood Pressure Source [Left forearm] Automatic Cuff Blood Pressure Source [Right Arm] Blood Pressure Position Blood Pressure Position [Left forearm] Supine Blood Pressure Position [Right Arm] 02 Sat by Pulse Oximetry 100 100 Oxygen Delivery Method Nasal Cannula Nasal Cannula Oxygen Flow Rate (LPM) 2 2 07/31/25 21:55 07/31/25 22:00 07/31/25 22:00 Temperature Temperature Source Pulse Rate 107 H 69 Pulse Rate [Left] Respiratory Rate 15 19 Blood Pressure 161/112 H 163/114 H Blood Pressure [Left forearm] Blood Pressure [Right Arm] Blood Pressure Mean 124 Blood Pressure Mean [Left forearm] Blood Pressure Mean [Right Arm] Blood Pressure Source Automatic Cuff Blood Pressure Source [Left forearm] Blood Pressure Source [Right Arm] Blood Pressure Position Supine Blood Pressure Position [Left forearm] Blood Pressure Position [Right Arm] 02 Sat by Pulse Oximetry 99 91 L Oxygen Delivery Method Nasal Cannula Nasal Cannula Oxygen Flow Rate (LPM) 2 2 07/31/25 22:00 07/31/25 22:05 07/31/25 22:05 Temperature Temperature Source Pulse Rate 100 H 90 Pulse Rate [Left] Respiratory Rate 15 15 Blood Pressure 158/105 H 149/104 H Blood Pressure [Left forearm] Blood Pressure [Right Arm] Blood Pressure Mean 119 Blood Pressure Mean [Left forearm] Blood Pressure Mean [Right Arm] Blood Pressure Source Automatic Cuff Blood Pressure Source [Left forearm] Blood Pressure Source [Right Arm] Blood Pressure Position Supine Blood Pressure Position [Left forearm] Blood Pressure Position [Right Arm] 02 Sat by Pulse Oximetry 98 100 Oxygen Delivery Method Nasal Cannula Nasal Cannula Oxygen Flow Rate (LPM) 2 2 07/31/25 22:15 07/31/25 22:15 07/31/25 22:56 Temperature 98.2 F Temperature Source Pulse Rate 85 91 H Pulse Rate [Left] Respiratory Rate 18 20 Blood Pressure 138/98 H 137/95 H Blood Pressure [Left forearm] Blood Pressure [Right Arm] Blood Pressure Mean 111 Blood Pressure Mean [Left forearm] Blood Pressure Mean [Right Arm] Blood Pressure Source Blood Pressure Source [Left forearm] Blood Pressure Source [Right Arm] Blood Pressure Position Blood Pressure Position [Left forearm] Blood Pressure Position [Right Arm] 02 Sat by Pulse Oximetry 100 Oxygen Delivery Method Nasal Cannula Room Air Oxygen Flow Rate (LPM) 2 Orders (Tests/Meds): ED MEDICATIONS Discontinued Medications Generic Name Dose Route Start Last Admin Trade Name Freq PRN Reason Stop Dose Admin Ketamine HCl 100 mg 07/31/25 22:28 07/31/25 22:32 Ketamine 50mg/1ml Syringe IV 07/31/25 22:29 100 mg ONCE ONE Administration Morphine Sulfate 4 mg 07/31/25 19:27 07/31/25 19:37 Morphine 4mg/Ml Syringe IV 07/31/25 19:28 4 mg ONCE ONE Administration Ondansetron HCl 4 mg 07/31/25 19:27 07/31/25 19:38 Ondansetron 4mg/2ml Vial IV 07/31/25 19:28 4 mg ONCE ONE Administration Oxycodone HCl 5 mg 07/31/25 22:44 07/31/25 22:49 Oxycodone 5mg Immediate Release Tablet PO 07/31/25 22:45 5 mg ONCE ONE Administration ORDERS Category Date Time Status Elbow XR left 2 views [XR elbow LT 2V] Stat Exams 07/31/25 21:52 Completed Elbow XR left mininum 3 views [XR elbow LT min 3V] Stat Exams 07/31/25 19:26 Completed Forearm XR left 2 views [XR forearm LT 2V] Stat Exams 07/31/25 19:26 Completed Wrist XR left minimum 3 views [XR wrist LT min 3V] Stat Exams 07/31/25 19:26 Completed Medical Decision Narrative: Patient is a 49-year-old female presenting to the emergency department for evaluation of left elbow. Patient is hemodynamically stable and nontoxic- appearing upon arrival, afebrile. Differential diagnosis includes fracture versus dislocation. Workup will be conducted with specific imaging Initial inventions include analgesics. Patient's x-rays were reviewed and interpreted by myself and showed fracture dislocation of the left elbow. Patient was otherwise neurovascularly intact with appropriate left radial pulse. Conscious sedation was performed at the bedside and patient's elbow was appropriately reduced. Patient was placed into a posterior long-arm splint with follow-up with Dr. Olmos in orthopedics. Patient was sent with oxycodone in addition to Tylenol Motrin for pain control. Procedures <Yaritza Chen ([place]), [employer]ITY [employer]ICER - Last Filed: 07/31/25 22:07> Orthopedic Fracture Reduction Fracture #1: Time Out Performed: Yes Side: left Fracture Reduction Location: radius Analgesia: procedural sedation Technique: direct manipulation Post Reduction X-rays Demonstrate: acceptable reduction Post-reduction neuro exam: intact Post-reduction vascular exam: intact Splint Applied: Yes Patient Tolerated Procedure: well Orthopedic Splinting/Casting Injury #1: Side: left Upper Extremity Injury Location: elbow Upper Extremity Immobilizer: posterior splint and applied by nurse/dr valenzuela Post Cast/Splinting Neuro Status: intact Post Cast/Splinting Vasc Status: intact <Herlinda Abrams DO - Last Filed: 08/01/25 21:38> Procedural Sedation Mallampati Score:: Class I Indication: fracture/dislocation reduction ASA Class: I Preparation: lunchroom monitor applied, pulse oximeter, capnometry used, suppl emental O2 applied, reversal agents at bedside, suction/airway equipment at bedside and IV secured Ketamine: IV Ketamine dose (mg): 100 Patient Tolerated Procedure: well Complications: none Interventions: oxygen applied Critical Care <Yaritza Chen ([place]), [employer] SECURITY OFFICER - Last Filed: 07/31/25 22:07> Critical Care Time Critical Care Time: No <Herlinda Abrams DO - Last Filed: 08/01/25 21:38> Critical Care Time Critical Care Time: Yes Attestation: On 07/31/25, the high probability of a clinically significant, sudden or life threatening deterioration of the following system(s) required my full and direct attention, intervention and personal management. The time I documented below is in addition to time spent performing reported procedures but includes the following listed in this critical care notation. Total Time Total Critical Care Time: 35
--- NOTE | 2025-07-31 20:20 | PC.NURSE ---
Addendum entered by Omayra Loco RN 07/31/25 20:29: Procedure consent obtained at this time; pt placed in gown and hooked up to endtidal CO2. crash cart and BMV at bedside. Original Note: Procedure consent obtained at this time; pt placed in gown and hooked up to endtidal CO2
--- NOTE | 2025-07-31 21:52 | XR_ITS ---
PROCEDURE INFORMATION: Exam: XR Left Elbow Exam date and time: 07/31/2025 9:51 PM Age: 49 years old Clinical indication: Injury or trauma; Fall; Blunt trauma (contusions or hematomas); Elbow; Left; Additional info: Post reduction TECHNIQUE: Imaging protocol: Radiologic exam of the left elbow. Views: 1 view. COMPARISON: CR XR ELBOW LT MIN 3V 07/31/2025 7:44 PM FINDINGS: Limitations: Suboptimal positioning. Bones/joints: Mildly displaced fracture proximal ulnar metaphysis. No dislocation. Probable joint effusion. Soft tissues: Soft tissue swelling. IMPRESSION: Interval reduction.
[2025-07-31] MEDS: KETAMINE 50MG/1ML SYRINGE 100 MG IV (22:32)
--- NOTE | 2025-07-31 22:33 | PC.NURSE ---
During consious sedation, 75mg of ketamine IV given at 2138 25mg of ketamine IV given at 2146
[2025-07-31] MEDS: OXYCODONE 5MG IMMEDIATE RELEASE TABLET 5 MG PO (22:49)
== END 2025-07-31 23:09 | disposition home or self-care (01) ==
PROVIDERS: Emergency Provider Student in an Organized Health Care Education/Training Program; PCP Physician Assistant
DX: S42.402A Unspecified fracture of lower end of left humerus, initial encounter for closed fracture (principal); T14.8XXA Other injury of unspecified body region, initial encounter; E78.5 Hyperlipidemia, unspecified; I10 Essential (primary) hypertension
CPT/HCPCS: 73070; 73080; 73090; 73110; 96374; 96375; 99285; J2270; J2405